=== PATIENT | male | born 1940 | race Caucasian/White ===

== ENCOUNTER 2016-12-29 13:10 | Inpatient (IN) | payer OTHER, MEDICARE ==
[2016-12-29] VITALS (8 sets, daily range): BP systolic 106–160; BP diastolic 66–105; PULSE 76–109; RESP 12–20; TEMP 97.5–98; O2SAT 90–93
[~2016-12-29] VITALS: Ht 172.7 cm; Wt 63.1 kg
[~2016-12-29 13:10] MED LIST: ATEN50TA PO; ENAL20TA PO; FERR1TAB36 PO; FLUD.1 PO; FURO1TAB60 PO; HYDR-3533 PO; JANT3TAB PO; LOVA40TA PO; METF1000 PO; OXYGENTANK NAS.CANULA; PENT400T PO; RANI150T PO; VERA360C PO; VITATAB43 PO
[2016-12-29] MEDS ORDERED: SODIUM CHLORIDE 0.9% FLUSH 5 ML FLUSH IVF PRN (13:30)
[2016-12-29] MEDS ORDERED: METF500T PO (13:37)
--- NOTE | 2016-12-29 13:42 | PD ---
HPI Chief Complaint: Abdominal Pain Time Seen by Provider: 13:23 Travel History International Travel<30 days: No Contact w/Intl Traveler<30days: No Traveled to known affect area: No History of Present Illness HPI 76-year-old male with history of HTN, HLD, DM, CAD with previous CABG, expressive aphasia here with complaint of abdominal pain. Patient is here with significant other who assists with history due to his aphasia. For the last week patient has had periumbilical abdominal pain that radiates into the epigastrium. Describes this as cramping. Mild nausea, no vomiting. BM, urinary habits have been unremarkable. He denies any chest pain, shortness of breath or palpitations. His however notes that he was hospitalized for a CHF exacerbation in October and overall has been doing well, but over the last 3 days he's had slight increasing dyspnea with exertion and generalized weakness. No increasing pedal edema. PFSH Past Medical History Hx Anticoagulant Therapy: Yes (coumadin) Arthritis: Yes (hands ) Cancer: Yes (PROSTATE/ skin cancer ) Cardiovascular Problems: Yes (CHF) Coronary Artery Disease: Yes Diabetes: Yes (metformin) Diminished Hearing: Yes (hearing aides; none in place) Endocrine: Yes Genitourinary: No Hypertension: Yes Musculoskeletal: Yes Neurologic: Yes (expressive aphasia) Psychiatric: No Reproductive: No Thyroid Disease: No Tetanus Vaccination: > 5 Years Influenza Vaccination: Yes Past Surgical History Abdominal Surgery: Yes (gallbladder surgery ) Cardiac Surgery: Yes (open heart surgery ) Cholecystectomy: Yes Coronary Artery Bypass Graft: Yes Genitourinary Surgery: Yes (prostate surgery ) Social History Alcohol Use: No Tobacco Use: No (quit 25 years ago) Substance Use: No Allergies-Medications (Allergen,Severity, Reaction): Coded Allergies: No Known Allergies (Unverified , 12/29/16) Reported Meds & Prescriptions Reported Meds & Active Scripts Active Lasix (Furosemide) 40 Mg Tab 40 Mg PO DAILY Reported Metformin (Metformin HCl) 500 Mg Tab 500 Mg PO DAILY With a meal Vitamin [id number] Acid (Cobalamine Combinations) 500-400 Mcg Tab 1 Tab PO DAILY Fludrocortisone (Fludrocortisone Acetate) 0.1 Mg Tab 0.1 Mg PO EVERY OTHER DAY Iron (Ferrous Sulfate) 325 Mg Tab 325 Mg PO DAILY Take Lortab (Hydrocodone-Acetaminophen) 5-325 Mg Tab 1 Tab PO Q6H PRN Enalapril (Enalapril Maleate) 20 Mg Tab 20 Mg PO BID Metformin (Metformin HCl) 1,000 Mg Tab 1,000 Mg PO BIDPC With meals Jantoven (Warfarin) 3 Mg Tab 3 Mg PO DAILY Verapamil SR (Verapamil HCl) 360 Mg Cap 360 Mg PO DAILY Ranitidine (Ranitidine HCl) 150 Mg Tab 150 Mg PO DAILY Atenolol 50 Mg Tab 50 Mg PO DAILY Pentoxifylline ER (Pentoxifylline) 400 Mg Tab 400 Mg PO TID Lovastatin 40 Mg Tab 40 Mg PO DAILY Review of Systems ROS Limitations: Speech Impaired Except as stated in HPI: all other systems reviewed are Neg Physical Exam Narrative GENERAL: Elderly male in no acute distress SKIN: Warm and dry. HEAD: Normocephalic. EYES: No scleral icterus. No injection or drainage. ENT: Mucous membranes pink and moist. NECK: Supple CARDIOVASCULAR: Regular rate and rhythm. No murmur appreciated. RESPIRATORY: No accessory muscle use. Clear to auscultation. Breath sounds equal bilaterally, but decreased throughout. GASTROINTESTINAL: Abdomen soft, mild. Periumbilical Abdominal tenderness to palpation without rebound or guarding. Old healed surgical scars. MUSCULOSKELETAL: 1+ BLE edema NEUROLOGICAL: Awake and alert. Normal speech. PSYCHIATRIC: Appropriate mood and affect; insight and judgment normal. Data Data Last Documented VS Vital Signs Date Time Temp Pulse Resp B/P Pulse Ox O2 Delivery O2 Flow Rate FiO2 12/29/16 14:28 77 16 106/66 90 Room Air 12/29/16 13:38 97.5 Orders Complete Blood Count With Diff (12/29/16 13:29) Comprehensive Metabolic Panel (12/29/16 13:29) Lipase (12/29/16 13:29) Ct Abd/Pel W Iv Contrast(Rout) (12/29/16 13:29) Iv Access Insert/Monitor (12/29/16 13:29) Ecg Monitoring (12/29/16 13:29) Oximetry (12/29/16 13:29) Sodium Chloride 0.9% Flush (Ns Flush) (12/29/16 13:30) Electrocardiogram (12/29/16 13:29) Troponin I (12/29/16 13:29) Oral Contrast - Adult (12/29/16 13:32) Chest, Single Ap (2/18/17 ) Diatrizoate Liq (Md Alma Carrillo) (12/29/16 13:57) Labs Laboratory Tests Test 12/29/16 12/29/16 13:45 14:20 White Blood Count 8.9 TH/MM3 Red Blood Count 5.40 MIL/MM3 Hemoglobin 12.7 GM/DL Hematocrit 40.3 % Mean Corpuscular Volume 74.6 FL Mean Corpuscular Hemoglobin 23.5 PG Mean Corpuscular Hemoglobin 31.5 % Concent Red Cell Distribution Width 16.5 % Platelet Count 291 TH/MM3 Mean Platelet Volume 7.3 FL Neutrophils (%) (Auto) 84.1 % Lymphocytes (%) (Auto) 7.9 % Monocytes (%) (Auto) 5.8 % Eosinophils (%) (Auto) 0.1 % Basophils (%) (Auto) 2.1 % Neutrophils # (Auto) 7.5 TH/MM3 Lymphocytes # (Auto) 0.7 TH/MM3 Monocytes # (Auto) 0.5 TH/MM3 Eosinophils # (Auto) 0.0 TH/MM3 Basophils # (Auto) 0.2 TH/MM3 CBC Comment AUTO DIFF Differential Total Cells 100 Counted Neutrophils % (Manual) 85 % Band Neutrophils % 2 % Lymphocytes % 5 % Monocytes % 8 % Neutrophils # (Manual) 7.7 TH/MM3 Differential Comment FINAL DIFF MANUAL Sodium Level 124 MEQ/L Potassium Level 5.5 MEQ/L Chloride Level 90 MEQ/L Carbon Dioxide Level 19.2 MEQ/L Anion Gap 15 MEQ/L Blood Urea Nitrogen 34 MG/DL Creatinine 1.70 MG/DL Estimat Glomerular Filtration 40 ML/MIN Rate Random Glucose 151 MG/DL Calcium Level 8.4 MG/DL Total Bilirubin 0.4 MG/DL Aspartate Amino Transf 26 U/L (AST/SGOT) Alanine Aminotransferase 21 U/L (ALT/SGPT) Alkaline Phosphatase 72 U/L Troponin I 0.11 NG/ML Total Protein 6.9 GM/DL Albumin 3.3 GM/DL Lipase 212 U/L [facility] Medical Decision Making Medical Screen Exam Complete: Yes Emergency Medical Condition: Yes Medical Record Reviewed: Yes Differential Diagnosis 76-year-old male with history of HTN, HLD, DM, CAD with previous CABG, expressive aphasia here with complaint of abdominal pain. Differential includes gastritis, pancreatitis, hepatobiliary pathology, cardiac equivalent, bowel obstruction, and less likely peritoneal pathology given her overall benign abdominal examination. Narrative Course Patient placed on monitor, IV established and blood obtained. Twelve-lead EKG shows atrial fibrillation with slow ventricular response, rate 54. Patient has Q waves in inferiorly in 3, aVF. Similar to patient's previous EKG. CBC, CMP, lipase, troponin obtained and notable for sodium 124. Patient has a history of hyponatremia, this is similar to his baseline. Potassium slightly elevated at 5.5 though hemolyzed. BUN 34, creatinine 1.70. Troponin slightly elevated 0.11. Patient has history of strep anemia, again is chest pain-free at this time. Given 40 mg Lasix IV.. Portable chest x-ray obtained that showed left greater than right basilar consolidation and small effusions. These are unchanged my read from his October chest x-ray and I think are more likely due to CHF and less likely infection. CT abdomen and pelvis pending at the time this dictation. Patient signed out to oncoming provider waiting results of same for ultimate admission given his elevated troponin. Diagnosis Primary Impression: Abdominal pain Qualified Code: R10.9 - Abdominal pain, unspecified location Additional Impressions: Elevated troponin CHF exacerbation Qualified Code: I50.9 - Acute on chronic congestive heart failure, unspecified congestive heart failure type Dyspnea on exertion Admitting Information Admitting Physician Requests: Admit Rosario Thurston MD Dec 29, 2016 13:42
[2016-12-29] MEDS ORDERED: DIATRIZOATE MEGLUM/DIATRIZOATE SOD 9 ML CUP ONE (13:57)
[2016-12-29 14:08] LABS: AUTOMATED NEUTROPHIL # 7.5 TH/MM3 (1.8-7.7); BASOPHIL # 0.2 TH/MM3 (0-0.2); BASOPHIL % 2.1 % (0.0-2.0); EOSINOPHIL % 0.1 % (0.0-4.0); HEMATOCRIT 40.3 % (39.0-51.0); LYMPH % 7.9 % (9.0-44.0); LYMPHOCYTE # 0.7 TH/MM3 (1.0-4.8); MEAN CELL VOLUME 74.6 FL (80.0-100.0); MEAN CORPUSCULAR HEMOGLOBIN 23.5 PG (27.0-34.0); MEAN CORPUSCULAR HGB CONC 31.5 % (32.0-36.0); MONO % 5.8 % (0.0-8.0); NEUT % 84.1 % (16.0-70.0); PLATELET COUNT 291 TH/MM3 (150-450); RED CELL DISTRIBUTION WIDTH 16.5 % (11.6-17.2); WHITE BLOOD COUNT 8.9 TH/MM3 (4.0-11.0)
[2016-12-29 14:09] LABS: HEMO FLAGS AUTO DIFF
--- NOTE | 2016-12-29 14:09 | RADHPO ---
EXAM DATE/TIME: 12/29/2016 14:00 [facility] COMPARISON: CHEST SINGLE AP, October 19, 2016, 15:03. INDICATIONS : Short of breath. MEDICAL HISTORY : Congestive heart failure. Myocardial infarction. Diabetes mellitus type II. SURGICAL HISTORY : CABG. ENCOUNTER: Initial ACUITY: 2 days PAIN SCORE: 0/10 LOCATION: Bilateral chest FINDINGS: There is left greater than right basilar consolidation and small effusions. No pneumothorax seen. Hea rt size stable, upper limits of normal. Patient has had previous median sternotomy and coronary arter y bypass graft operation. CONCLUSION: Left greater than right basilar consolidation and small effusions. Gregor Smith MD on December 29, 2016 at 14:07 Board Certified Radiologist. This report was verified electronically.
[2016-12-29 14:39] LABS: BANDS 2 % (0-6); NEUTROPHIL # MANUAL DIFF 7.7 TH/MM3 (1.8-7.7); POLYS (SEG NEUTROPHILS) 85 % (16-70); SCAN/DIFF FINAL DIFF MANUAL; WBC DIFF SAMPLE 100
[2016-12-29 14:44] LABS: ANION GAP 15 MEQ/L (5-15); BICARBONATE 19.2 MEQ/L (21.0-32.0); BLOOD UREA NITROGEN 34 MG/DL (7-18); CHLORIDE 90 MEQ/L (98-107); POTASSIUM 5.5 MEQ/L (3.5-5.1)
[2016-12-29 14:45] LABS: SODIUM (NA) 124 MEQ/L (136-145)
[2016-12-29 15:16] LABS: ALKALINE PHOSPHATASE 72 U/L (45-117); ALT (GPT) 21 U/L (12-78); AST (GOT) 26 U/L (15-37); GLOMERULAR FILTRATION RATE 40 ML/MIN (>89); TOTAL BILIRUBIN ADULT 0.4 MG/DL (0.2-1.0)
[2016-12-29] MEDS ORDERED: FUROSEMIDE 40 MG/4 ML VIAL IV PUSH ONE (15:45)
[2016-12-29] MEDS: METFORMIN HOLD POST IV CONTRAST XX SCH (15:45)
--- NOTE | 2016-12-29 16:14 | PD ---
Physical Exam Date Seen by Provider: Dec 29, 2016 Time Seen by Provider: 16:11 Narrative The patient is a 76-year-old male was initially evaluated by the previous physician, Dr. Thurston. Please refer to initial history, physical, diagnostic evaluation, treatment modality plan. The patient has had increasing shortness of breath is worse with exertion as well as nondescript epigastric periumbilical abdominal pain for the last [address] Thurston, the patient appears to have congestive heart failure and will need admission. Patient was signed out at [address] of the abdomen and pelvis pending, with [facility] previous physician pending. Data Data Last Documented VS Vital Signs Date Time Temp Pulse Resp B/P Pulse Ox O2 Delivery O2 Flow Rate FiO2 12/29/16 16:20 76 16 129/86 90 Room Air 12/29/16 13:38 97.5 Orders Complete Blood Count With Diff (12/29/16 13:29) Comprehensive Metabolic Panel (12/29/16 13:29) Lipase (12/29/16 13:29) Ct Abd/Pel W Iv Contrast(Rout) (12/29/16 13:29) Iv Access Insert/Monitor (12/29/16 13:29) Ecg Monitoring (12/29/16 13:29) Oximetry (12/29/16 13:29) Sodium Chloride 0.9% Flush (Ns Flush) (12/29/16 13:30) Electrocardiogram (12/29/16 13:29) Troponin I (12/29/16 13:29) Oral Contrast - Adult (12/29/16 13:32) Chest, Single Ap (12/29/16 ) Diatrizoate Liq ( Gastroview Liq) (12/29/16 13:57) Furosemide Inj (Lasix Inj) (12/29/16 15:45) Aspirin Chew (Aspirin Chew) (12/29/16 16:15) Act Partial Throm Time (Ptt) (12/29/16 16:14) Prothrombin Time / Inr (Pt) (12/29/16 16:14) Iodixanol 320 Inj (Rad Ct) (Visipaque 32 (12/29/16 16:17) Labs Laboratory Tests Test 12/29/16 12/29/16 13:45 14:20 White Blood Count 8.9 TH/MM3 Red Blood Count 5.40 MIL/MM3 Hemoglobin 12.7 GM/DL Hematocrit 40.3 % Mean Corpuscular Volume 74.6 FL Mean Corpuscular Hemoglobin 23.5 PG Mean Corpuscular Hemoglobin 31.5 % Concent Red Cell Distribution Width 16.5 % Platelet Count 291 TH/MM3 Mean Platelet Volume 7.3 FL Neutrophils (%) (Auto) 84.1 % Lymphocytes (%) (Auto) 7.9 % Monocytes (%) (Auto) 5.8 % Eosinophils (%) (Auto) 0.1 % Basophils (%) (Auto) 2.1 % Neutrophils # (Auto) 7.5 TH/MM3 Lymphocytes # (Auto) 0.7 TH/MM3 Monocytes # (Auto) 0.5 TH/MM3 Eosinophils # (Auto) 0.0 TH/MM3 Basophils # (Auto) 0.2 TH/MM3 CBC Comment AUTO DIFF Differential Total Cells 100 Counted Neutrophils % (Manual) 85 % Band Neutrophils % 2 % Lymphocytes % 5 % Monocytes % 8 % Neutrophils # (Manual) 7.7 TH/MM3 Differential Comment FINAL DIFF MANUAL Prothrombin Time 46.2 SEC Prothromb Time International 3.9 RATIO Ratio Activated Partial 35.9 SEC Thromboplast Time Sodium Level 124 MEQ/L Potassium Level 5.5 MEQ/L Chloride Level 90 MEQ/L Carbon Dioxide Level 19.2 MEQ/L Anion Gap 15 MEQ/L Blood Urea Nitrogen 34 MG/DL Creatinine 1.70 MG/DL Estimat Glomerular Filtration 40 ML/MIN Rate Random Glucose 151 MG/DL Calcium Level 8.4 MG/DL Total Bilirubin 0.4 MG/DL Aspartate Amino Transf 26 U/L (AST/SGOT) Alanine Aminotransferase 21 U/L (ALT/SGPT) Alkaline Phosphatase 72 U/L Troponin I 0.11 NG/ML Total Protein 6.9 GM/DL Albumin 3.3 GM/DL Lipase 212 U/L [facility] Medical Record Reviewed: Yes Supervised Visit with RASHEED: No Interpretation(s) Laboratory Tests Test 12/29/16 12/29/16 13:45 14:20 White Blood Count 8.9 TH/MM3 Red Blood Count 5.40 MIL/MM3 Hemoglobin 12.7 GM/DL Hematocrit 40.3 % Mean Corpuscular Volume 74.6 FL Mean Corpuscular Hemoglobin 23.5 PG Mean Corpuscular Hemoglobin 31.5 % Concent Red Cell Distribution Width 16.5 % Platelet Count 291 TH/MM3 Mean Platelet Volume 7.3 FL Neutrophils (%) (Auto) 84.1 % Lymphocytes (%) (Auto) 7.9 % Monocytes (%) (Auto) 5.8 % Eosinophils (%) (Auto) 0.1 % Basophils (%) (Auto) 2.1 % Neutrophils # (Auto) 7.5 TH/MM3 Lymphocytes # (Auto) 0.7 TH/MM3 Monocytes # (Auto) 0.5 TH/MM3 Eosinophils # (Auto) 0.0 TH/MM3 Basophils # (Auto) 0.2 TH/MM3 CBC Comment AUTO DIFF Differential Total Cells 100 Counted Neutrophils % (Manual) 85 % Band Neutrophils % 2 % Lymphocytes % 5 % Monocytes % 8 % Neutrophils # (Manual) 7.7 TH/MM3 Differential Comment FINAL DIFF MANUAL Sodium Level 124 MEQ/L Potassium Level 5.5 MEQ/L Chloride Level 90 MEQ/L Carbon Dioxide Level 19.2 MEQ/L Anion Gap 15 MEQ/L Blood Urea Nitrogen 34 MG/DL Creatinine 1.70 MG/DL Estimat Glomerular Filtration 40 ML/MIN Rate Random Glucose 151 MG/DL Calcium Level 8.4 MG/DL Total Bilirubin 0.4 MG/DL Aspartate Amino Transf 26 U/L (AST/SGOT) Alanine Aminotransferase 21 U/L (ALT/SGPT) Alkaline Phosphatase 72 U/L Troponin I 0.11 NG/ML Total Protein 6.9 GM/DL Albumin 3.3 GM/DL Lipase 212 U/L CT abdomen and pelvis reveals no umbilical hernia identified in patient with reported umbilical hernia. There is fluid within a right sided inguinal hernia. No bowel obstruction. Mild ileus. Diffuse anasarca. Bilateral partially loculated pleural effusions with basilar airspace disease, right greater than left. Differential Diagnosis Differential diagnosis includes congestive heart failure, pneumonia, pulmonary embolism, pleural effusion, cardiomyopathy, hypoxia, AAA, atypical appendicitis , pancreatitis, biliary colic, peptic ulcer disease. Narrative Course The patient was initially evaluated by the previous physician, please refer to the initial history, physical, diagnostic evaluation, treatment modality plan. The patient was signed out of [address] the abdomen and pelvis report pending as well as admission for hypoxia and congestive heart failure. The patient's sodium is low 124, EMR reveals patient sodium typically runs between 126 and 130. Patient is on Coumadin, therefore, PT/INR were sent to lab. Patient does have acute exacerbation of CHF with hypoxia with an O2 sat on room air of 90%. The patient was administered Lasix by the previous physician, I provided aspirin [address] abdomen and pelvis reveals anasarca. INR is therapeutic at 3.9. The previous physician recommended admission, therefore , [facility]. I reviewed the EMR, the patient had an echocardiogram performed on October 20, 2016 which revealed an ejection fraction of 45%. Physician Communication Physician Communication [facility] were paged for admission. I discussed the patient with Dr. Granado who agrees with admission. Diagnosis Primary Impression: Abdominal pain Qualified Code: R10.9 - Abdominal pain, unspecified location Additional Impressions: Dyspnea on exertion Elevated troponin CHF exacerbation Qualified Code: I50.9 - Acute on chronic congestive heart failure, unspecified congestive heart failure type Admitting Information Admitting Physician Requests: Admit Condition: Stable Hugh Ham MD Dec 29, 2016 16:14
[2016-12-29] MEDS ORDERED: ASPIRIN 81 MG CHEW TAB CHEW ONE (16:15)
[2016-12-29] MEDS ORDERED: IODIXANOL 320 MG/ML 10 ML VIAL (for Rad CT) IV ONE (16:17)
[2016-12-29 16:36] LABS: APTT (PATIENT) 35.9 SEC (24.3-30.1); INTERNATIONAL NORMALIZED RATIO 3.9 RATIO; PROTHROMBIN TIME - PATIENT 46.2 SEC (9.8-11.6)
--- NOTE | 2016-12-29 16:36 | RADHPO ---
EXAM DATE/TIME: 12/29/2016 15:39 [facility] COMPARISON: No previous studies available for comparison. INDICATIONS : Umbilical pain for one week. IV CONTRAST: 46 cc Visipaque (iodixanol) IV ORAL CONTRAST: Prescribed oral contrast ingested. RADIATION DOSE: 7.46 CTDIvol (mGy) MEDICAL HISTORY : Hypertension. diabetes, congestive heart failure, SURGICAL HISTORY : CABG Cholecystectomy. ENCOUNTER: Initial ACUITY: 1 week PAIN SCALE: LOCATION: umbilical abdomen TECHNIQUE: Volumetric scanning of the abdomen and pelvis was performed. Using automated exposure control and ad justment of the mA and/or kV according to patient size, radiation dose was kept as low as reasonably achievable to obtain optimal diagnostic quality images. FINDINGS: There is a moderate size right effusion and a smaller left effusion both of which appear to be least partially loculated. There is bilateral mostly basilar airspace disease, right greater than left. Sev ere coronary calcifications present, postoperative CABG. No acute findings in the liver, spleen or pancreas. Left kidney unremarkable. Multiple right renal cy sts. There is bilateral adrenal gland enlargement. There is no bowel obstruction. There is a mild ileus with air-fluid levels noted in small and large b owel. There is mild anasarca. There is fluid tracking into the right inguinal canal. No acute bony abnormalities. CONCLUSION: 1. No umbilical hernia identified in patient with reported umbilical pain. There is fluid within a ri ght-sided inguinal hernia. No bowel obstruction. Mild ileus. 2. Diffuse anasarca. Bilateral partially loculated pleural effusions with basilar airspace disease , right greater than left. Carson Honeycutt MD on December 29, 2016 at 16:27 Board Certified Radiologist. This report was verified electronically.
[2016-12-29] MEDS ORDERED: DEXTROSE 50% IN WATER 50 ML VIAL(D50) IV PUSH PRN (17:00)
[2016-12-29] MEDS ORDERED: GLUCAGON 1 MG/ML VIAL OTHER PRN (17:00)
[2016-12-29] MEDS ORDERED: FUROSEMIDE 40 MG/4 ML VIAL IVP SCH (18:00)
[2016-12-29] MEDS: PENTOXIFYLLINE 400 MG CONTROLLED RELEASE TAB PO SCH (18:20)
[2016-12-29] MEDS: INSULIN ASPART SUPPLEMENTAL SCALE SQ SCH (20:05)
[2016-12-29] MEDS: SODIUM CHLORIDE 0.9% FLUSH 5 ML FLUSH IVF SCH (20:06)
[2016-12-30] VITALS (30 sets, daily range): BP systolic 95–162; BP diastolic 54–108; PULSE 52–122; RESP 14–31; TEMP 97.4–98.7; O2SAT 87–98
--- NOTE | 2016-12-30 01:33 | RADHPO ---
EXAM DATE/TIME: 12/30/2016 01:02 [facility] COMPARISON: CHEST SINGLE AP, December 29, 2016, 14:00. INDICATIONS : Shortness of breath. MEDICAL HISTORY : Hypertension. Congestive heart failure. Myocardial infarction. Diabetes SURGICAL HISTORY : CABG. Cholecystectomy. ENCOUNTER: Subsequent ACUITY: 3 days PAIN SCORE: 0/10 LOCATION: Bilateral chest FINDINGS: The cardiac silhouette is normal in transverse diameter. Median sternotomy wires are present. The mi gs are hypoinflated. There are findings of congestive heart failure with interstitial and alveolar op acity bilaterally. Small bilateral pleural effusions are identified. CONCLUSION: 1. Cardiomegaly and findings of congestive heart failure. The findings have worsened when compared wi th the prior examination. Candelario Trivedi MD on December 30, 2016 at 1:31 Board Certified Radiologist. This report was verified electronically.
[2016-12-30 02:43] LABS: CREATINE KINASE 69 U/L (39-308)
[2016-12-30 02:44] LABS: BICARBONATE 21.1 MEQ/L (21.0-32.0); POTASSIUM 4.9 MEQ/L (3.5-5.1)
[2016-12-30] MEDS ORDERED: FUROSEMIDE 40 MG/4 ML VIAL IV PUSH ONE (05:30)
[2016-12-30] MEDS: INSULIN ASPART SUPPLEMENTAL SCALE SQ SCH ×4 (06:41→21:00)
[2016-12-30 07:09] LABS: INTERNATIONAL NORMALIZED RATIO 4.8 RATIO; PROTHROMBIN TIME - PATIENT 56.7 SEC (9.8-11.6)
[2016-12-30 07:28] LABS: BICARBONATE 23.5 MEQ/L (21.0-32.0); POTASSIUM 4.6 MEQ/L (3.5-5.1)
--- NOTE | 2016-12-30 08:23 | HHI.HP ---
[facility] Leonardo Chowdhury M.D. Admission Diagnosis congestive heart failure, hypoxia, elevated troponin, anasarca Diagnoses: (1) Acute respiratory failure with hypoxia Diagnosis: Principal (2) Acute on chronic systolic congestive heart failure Diagnosis: Principal (3) Pleural effusion Diagnosis: Principal (4) Elevated troponin Diagnosis: Principal (5) Acute renal failure Diagnosis: Principal (6) Hyponatremia Diagnosis: Principal (7) Hyperkalemia Diagnosis: Principal (8) Coagulopathy Diagnosis: Principal (9) Atrial fibrillation Diagnosis: Principal (10) Hypertension Diagnosis: Secondary (11) Hyperlipidemia Diagnosis: Secondary (12) History of CVA with residual deficit Diagnosis: Secondary Chief Complaint: Abdominal pain Travel History International Travel<30 Days: No Contact w/Intl Traveler <30 Da: No Traveled to Known Affected Are: No History of Present Illness 76-year-old male with known history of hypertension, hyperlipidemia, history CVA with dysphasia, chronic systolic congestive heart failure, anticoagulated on Coumadin who presented to hospital because of abdominal pain. Patient does have difficulty speaking secondary previous CVA. Information was taken from medical records, patient came to emergency department for abdominal discomfort. Records indicate that for one week he has been having periumbilical, epigastric abdominal pain. Is also indicated that over the last 3 days he has been having slight increase with dyspnea with exertion and generalized weakness. Laboratory studies were done emergency department which did not indicate any acute abnormality for his above abdominal pain. Laboratory studies did indicate hyponatremia which is chronic and the patient, Coumadin coagulopathy. CT of the abdomen does indicate fluid within the right sided inguinal hernia, diffuse anasarca, bilateral partially loculated pleural effusions with bibasilar airspace disease. Chest x-ray was performed which did show congestive heart failure and worse when compared to previous examination. Patient was given Lasix in the emergency department and is recommended by the ER physician that the patient be admitted for further evaluation and management. Overnight, the patient apparently had episodes of desaturation. Blood Donor Unit Assistant was notified. Follow-up laboratory studies were performed, additional Lasix was given, patient was started on BiPAP for respiratory support. Patient was seen today in he does not indicate any shortness of breath or dyspnea. Still experiencing abdominal discomfort. Patient has not had any significant urinary output with Lasix. Patient will be transferred to ICU for closer management. Per the , due to the patient's aphasia, he cannot express himself well. She noted that he seemed fatigued, and was urinating less frequently, and also did not want to get up and walk as normally. She thus brought him to the ER. Patient does indicate that he feels better today. Patient's feels his color has improved. Review of Systems ROS Limitations: Speech Impaired Respiratory: DENIES: Cough, Wheezing, Shortness of breath Cardiovascular: COMPLAINS OF: Dyspnea on Exertion, Lower Extremity Edema, DENIES: Chest pain, Palpitations Gastrointestinal: COMPLAINS OF: Abdominal pain Past Family Social History Past Medical History Hypertension Hyperlipidemia Coronary artery disease History myocardial infarction History of CVA with residual of expressive dysphasia History of prostate cancer status post cryotherapy Diabetes Past Surgical History Coronary bypass surgery Tonsillectomy Cholecystectomy Cryosurgery for prostate Thoracentesis Reported Medications Reported Meds & Active Scripts Active Lasix (Furosemide) 40 Mg Tab 40 Mg PO DAILY Reported Metformin (Metformin HCl) 500 Mg Tab 500 Mg PO DAILY With a meal Vitamin I03-Lptuq Acid (Cobalamine Combinations) 500-400 Mcg Tab 1 Tab PO DAILY Fludrocortisone (Fludrocortisone Acetate) 0.1 Mg Tab 0.1 Mg PO EVERY OTHER DAY Iron (Ferrous Sulfate) 325 Mg Tab 325 Mg PO DAILY Take Lortab (Hydrocodone-Acetaminophen) 5-325 Mg Tab 1 Tab PO Q6H PRN Enalapril (Enalapril Maleate) 20 Mg Tab 20 Mg PO BID Metformin (Metformin HCl) 1,000 Mg Tab 1,000 Mg PO BIDPC With meals Jantoven (Warfarin) 3 Mg Tab 3 Mg PO DAILY Verapamil SR (Verapamil HCl) 360 Mg Cap 360 Mg PO DAILY Ranitidine (Ranitidine HCl) 150 Mg Tab 150 Mg PO DAILY Atenolol 50 Mg Tab 50 Mg PO DAILY Pentoxifylline ER (Pentoxifylline) 400 Mg Tab 400 Mg PO TID Lovastatin 40 Mg Tab 40 Mg PO DAILY Allergies: Coded Allergies: No Known Allergies (Unverified , 12/29/16) Family History Reviewed is significant for mother and father having heart disease Social History Patient quit smoking 24 years ago, patient quit using alcohol 20 years ago, patient denies any illicit drug use Physical Exam Vital Signs Vital Signs Date Time Temp Pulse Resp B/P Pulse Ox O2 Delivery O2 Flow Rate FiO2 12/30/16 04:45 96 35 12/30/16 04:00 98.7 108 22 148/108 98 12/30/16 01:00 94 40 12/30/16 00:22 97.8 103 24 162/95 92 12/29/16 20:40 92 Nasal Cannula 3.00 12/29/16 20:07 98.0 77 12 160/105 93 12/29/16 17:19 109 16 126/89 92 Nasal Cannula 2 12/29/16 16:20 76 16 129/86 90 Room Air 12/29/16 14:28 77 16 106/66 90 Room Air 12/29/16 13:51 16 91 Room Air 12/29/16 13:38 97.5 12/29/16 13:17 96 20 131/74 91 Physical Exam GENERAL: Well-developed, well-nourished, in no acute distress. alert and orientated HEENT: Head is normocephalic without any lesions or masses noted. Facial features are symmetric. Eyes: Pupils equal round reactive to light. Extraocular muscles are intact. Conjunctivae were clear. Patient wearing BiPAP mask NECK: Supple without any masses. Trachea midline no deviation. No JVD, no bruits are appreciated CARDIAC: Regular rhythm, regular rate. S1/S2 are heard. No murmurs gallops or rubs. LUNGS: Fine crackles noted bilateral bases. No wheeze, rhonchi or rales. No use of accessory muscles on inspiration or expiration. ABDOMEN: Soft, palpable tenderness noted in the epigastric region. Nondistended. Bowel sounds heard in all 4 quadrants. No organomegaly or masses. Negative rebound, negative guarding EXTREMITIES: 1+ pitting edema noted bilateral lower extremities, pulses are equal bilaterally. No cyanosis or clubbing NEUROLOGY: Mood and affect appear appropriate. Cranial nerves II through XII grossly intact. Muscle strength 5/5 in upper and lower extremities bilaterally. Deep tendon reflexes are 2+ in upper and lower extremities bilaterally. Laboratory Laboratory Tests Test 12/29/16 12/29/16 12/29/16 12/30/16 13:45 14:20 20:10 02:05 White Blood Count 8.9 Red Blood Count 5.40 Hemoglobin 12.7 Hematocrit 40.3 Mean Corpuscular Volume 74.6 Mean Corpuscular Hemoglobin 23.5 Mean Corpuscular Hemoglobin 31.5 Concent Red Cell Distribution Width 16.5 Platelet Count 291 Mean Platelet Volume 7.3 Neutrophils (%) (Auto) 84.1 Lymphocytes (%) (Auto) 7.9 Monocytes (%) (Auto) 5.8 Eosinophils (%) (Auto) 0.1 Basophils (%) (Auto) 2.1 Neutrophils # (Auto) 7.5 Lymphocytes # (Auto) 0.7 Monocytes # (Auto) 0.5 Eosinophils # (Auto) 0.0 Basophils # (Auto) 0.2 CBC Comment AUTO DIFF Differential Total Cells 100 Counted Neutrophils % (Manual) 85 Band Neutrophils % 2 Lymphocytes % 5 Monocytes % 8 Neutrophils # (Manual) 7.7 Differential Comment FINAL DIFF MANUAL Prothrombin Time 46.2 Prothromb Time International 3.9 Ratio Activated Partial 35.9 Thromboplast Time Sodium Level 124 124 Potassium Level 5.5 4.9 Chloride Level 90 88 Carbon Dioxide Level 19.2 21.1 Anion Gap 15 15 Blood Urea Nitrogen 34 36 Creatinine 1.70 1.60 Estimat Glomerular Filtration 40 42 Rate Random Glucose 151 107 Calcium Level 8.4 8.6 Total Bilirubin 0.4 Aspartate Amino Transf 26 (AST/SGOT) Alanine Aminotransferase 21 (ALT/SGPT) Alkaline Phosphatase 72 Troponin I 0.11 0.11 0.14 Total Protein 6.9 Albumin 3.3 Lipase 212 Total Creatine Kinase 75 69 Test 12/30/16 06:15 Prothrombin Time 56.7 Prothromb Time International 4.8 Ratio Sodium Level 123 Potassium Level 4.6 Chloride Level 87 Carbon Dioxide Level 23.5 Anion Gap 13 Blood Urea Nitrogen 35 Creatinine 1.60 Estimat Glomerular Filtration 42 Rate Random Glucose 111 Calcium Level 8.9 Result Diagram: 12/29/16 1345 12/30/16 0615 Imaging Last Impressions Chest X-Ray 12/30/16 0000 Signed Impressions: Service Date/Time: Friday, December 30, 2016 01:02 - CONCLUSION: 1. Cardiomegaly and findings of congestive heart failure. The findings have worsened when compared with the prior examination. Candelario Trivedi MD Abdomen/Pelvis CT 12/29/16 1329 Signed Impressions: Service Date/Time: Thursday, December 29, 2016 15:39 - CONCLUSION: 1. No umbilical hernia identified in patient with reported umbilical pain. There is fluid within a right-sided inguinal hernia. No bowel obstruction. Mild ileus. 2. Diffuse anasarca. Bilateral partially loculated pleural effusions with basilar airspace disease, right greater than left. Carson Honeycutt MD Assessment and Plan Assessment and Plan Acute hypoxic respiratory failure: Likely secondary to congestive heart failure exacerbation. Patient will be transferred to the ICU. Continue BiPAP at this time. Continue O2 supplementation to maintain O2 sats greater than 92% . Obtain ABG. Chest x-ray shows worsening congestive pattern. Acute on chronic systolic congestive heart failure: Patient started on Lasix 40 mg IV every 12 hours. Patient was given extra dose of Lasix overnight. Patient with urinary output 775 mL of urine in 7 hours, approx 110ml/hr. Strict inputs and outputs are being monitored with Lepe. Repeat chest x-ray still showing worsening of congestive pattern. Patient continue to be monitored on telemetry. CT scan was showing anasarca and pleural effusions. Will change to Bumex 1 mg IV every 12 hours, start albumin 12.5 mg IV every 12 hours to facilitate extravascular fluid mobilization. Samsca 15 mg PO x 1 (lift fluid restriction). Placed YEIMY hose. Continued beta nirmal, LY inhibitor has been held due to acute renal failure and hyperkalemia. Recent echocardiogram 10/20/16 indicates ejection fraction 45%. Left ventricle mildly dilated, LVH, systolic function mildly reduced. Acute renal failure with hyperkalemia: Could be secondary to LY inhibitor, diuresis. We'll hold LY inhibitor, hyperkalemia has improved. Continue to follow renal function, avoid nephrotoxins Equivocal troponin elevation: Upon review of records it does appear patient has had previous troponin elevations. Patient is asymptomatic. EKGs do not indicate any acute abnormality. Denies any chest pain. Elevations could be secondary to congestive heart failure, renal failure. Continue monitor patient for any acute symptoms of acute coronary syndrome Hyponatremia: Patient does have chronic hyponatremia. On previous admission it could have been secondary to polydipsia. Need to use diuretic sparingly and monitoring sodium level closely. Samsca 15 mg PO x1 which will also aid with diuresis. D/w patient and to avoid fluid restriction over the next 24 hours. I will repeat a BMP this afternoon. Coumadin coagulopathy: We'll continue to hold Coumadin at this time, monitor PT /INR on a daily basis, monitor closely for any signs of acute bleeding Atrial fibrillation by EKG: Discussed with , she is unaware of any history of A. fib. The patient has not seen a [place] opener in years since his bypass surgery 20 years ago. Patient is on beta nirmal area rate is controlled. Patient already anticoagulated with Coumadin. Hypertension, hyperlipidemia, coronary artery disease: Home medications have been continued History of CVA with aphasia: Patient anticoagulated with Coumadin. Been held at this time due to coagulopathy. Resume Coumadin when INR below 3.0 DVT prevention: Patient anticoagulated on Coumadin. INR 4.8. Critical care time: 60 minutes excluding procedures Written by Grey Lombardo PA-C, acting as scribe for Dr. Granado on 12/30/16 at 15:10 The documentation accurately reflects the work and decisions performed face-to- face by Dr. Granado on 12/30/16 at 15:10. Physician Certification 2 Midnight Certification Type: Admission for Inpatient Services Order for Inpatient Services The services are ordered in accordance with Medicare regulations or non- Medicare payer requirements, as applicable. In the case of services not specified as inpatient-only, they are appropriately provided as inpatient services in accordance with the 2-midnight benchmark. Estimated LOS (days): 3 days is the estimated time the patient will need to remain in the hospital, assuming treatment plan goals are met and no additional complications. Post-Hospital Plan: Not yet determined Problem Qualifiers (1) Acute renal failure: Qualified Code: N17.9 - Acute renal failure, unspecified acute renal failure type (2) Atrial fibrillation: Qualified Code: I48.91 - Atrial fibrillation, unspecified type (3) Hypertension: Qualified Code: I15.9 - Secondary hypertension (4) Hyperlipidemia: Qualified Code: E78.5 - Hyperlipidemia, unspecified hyperlipidemia type Grey Lombardo Dec 30, 2016 08:23 Kassidy Granado MD Dec 30, 2016 15:22
[2016-12-30 08:52] LABS: BLOOD GAS BASE EXCESS -3.5 mmol/L (-2-2); BLOOD GAS CARBOXYHEMOGLOBIN 1.3 % (0-4); BLOOD GAS HCO3 21 mmol/L (22-26); BLOOD GAS METHEMOGLOBIN 0.7 % (0-2); BLOOD GAS O2 HGB SATURATION 92 % (90-100); BLOOD GAS OXYGEN CONTENT 15.6 Vol % (12.0-20.0); BLOOD GAS PCO2 35 mmHg (38-42); BLOOD GAS PO2 71 mmHg (61-120); CRITICAL VALUE NO; DRAW SITE RT RADIAL; LITER FLOW 3 L/M; NUMBER OF ARTERIAL PUNCTURES 1; OXYGEN DEVICE NASAL CANNULA; STAT NO; ULNAR PULSE PRESENT
[2016-12-30] MEDS ORDERED: ATENOLOL 50 MG TAB PO SCH (09:00)
[2016-12-30] MEDS: SODIUM CHLORIDE 0.9% FLUSH 5 ML FLUSH IVF SCH ×2 (09:23→20:20)
[2016-12-30] MEDS: FAMOTIDINE 20 MG TAB PO SCH (09:23)
[2016-12-30] MEDS: ALBUMIN HUMAN 25% 12.5 GM/50 ML BAGP IV SCH ×2 (09:23→16:42)
[2016-12-30] MEDS: PRAVASTATIN SOD 40 MG TAB PO SCH (09:23)
[2016-12-30] MEDS: BUMETANIDE INJ 1 MG/4 ML VIAL IV PUSH SCH ×2 (10:07→16:59)
[2016-12-30] MEDS: SODIUM CHLORIDE 0.9% FLUSH 5 ML FLUSH IVF PRN ×3 (10:08→16:59)
[2016-12-30] MEDS: PENTOXIFYLLINE 400 MG CONTROLLED RELEASE TAB PO SCH ×3 (11:01→17:04)
[2016-12-30] MEDS: VERAPAMIL HCL 180 MG SUSTAINED RELEASE TAB PO SCH (11:01)
[2016-12-30] MEDS ORDERED: TOLVAPTAN 30 MG TAB PO ONE (12:00)
[2016-12-30] MEDS: PILL SPLITTER OTHER PRN (12:07)
--- NOTE | 2016-12-30 15:29 | EKG ---
Date Performed: 12/29/2016 Time Performed: 13:32:14 PTAGE: 76 years EKG: Atrial fibrillation with slow ventricular response. Possible inferior wall infarct - age un determined Diffuse nonspecific ST-t wave change. Poor R wave progression. When compared to previous t racing, the ST-T changes have Improved. Abnormal ECG PREVIOUS TRACING : 10/20/2016 10.10 DOCTOR: Bruce Duong Interpretating Date/Time 12/30/2016 15:27:56
[2016-12-30] MEDS ORDERED: RESP: ALBUTEROL 2.5 MG/IPRATROPIUM 0.5 MG NEB (PRN) NEB (15:30)
--- NOTE | 2016-12-30 15:31 | EKG ---
Date Performed: 12/29/2016 Time Performed: 20:12:10 PTAGE: 76 years EKG: Atrial fibrillation. Possible inferior infarct - age undetermined Por R wave progression ac ross the precordium. Diffuse nonspecific ST-T change. When compared to previous tracing, heart rate h as increased, Otherwise no significant change. Abnormal ECG PREVIOUS TRACING : 12/29/2016 13.32 DOCTOR: Bruce Duong Interpretating Date/Time 12/30/2016 15:31:00
[2016-12-30] MEDS: RESP: ALBUTEROL 2.5 MG/IPRATROPIUM 0.5 MG NEB (SCH) NEB ×2 (15:34→19:35)
--- NOTE | 2016-12-30 15:34 | EKG ---
Date Performed: 12/30/2016 Time Performed: 01:56:46 PTAGE: 76 years EKG: Atrial fibrillation with rapid ventricular response Possible inferior wall infarct - age un determined Poorr wave progression across the precordium. Nonspecific ST-T change. When compared to pr evious tracikng, heart rate has increasd, Otherwise no significant change. Abnormal ECG PREVIOUS TRACING : 12/29/2016 20.12 DOCTOR: Bruce Duong Interpretating Date/Time 12/30/2016 15:33:07
[2016-12-30] MEDS: METFORMIN HOLD POST IV CONTRAST XX SCH (15:45)
[2016-12-30 16:38] LABS: BICARBONATE 23.5 MEQ/L (21.0-32.0); POTASSIUM 4.6 MEQ/L (3.5-5.1)
[2016-12-30] MEDS ORDERED: diphenhydrAMINE HCL 25 MG CAP PO ONE (23:15)
[2016-12-31] VITALS (32 sets, daily range): BP systolic 96–144; BP diastolic 52–97; PULSE 62–120; RESP 14–31; TEMP 97.6–98.1; O2SAT 84–100
[2016-12-31 05:30] LABS: POTASSIUM 4.2 MEQ/L (3.5-5.1)
[2016-12-31 05:33] LABS: BICARBONATE 25.3 MEQ/L (21.0-32.0)
[2016-12-31 06:08] LABS: INTERNATIONAL NORMALIZED RATIO 4.1 RATIO; PROTHROMBIN TIME - PATIENT 48.8 SEC (9.8-11.6)
[2016-12-31] MEDS: INSULIN ASPART SUPPLEMENTAL SCALE SQ SCH (07:00)
[2016-12-31] MEDS: RESP: ALBUTEROL 2.5 MG/IPRATROPIUM 0.5 MG NEB (SCH) NEB ×4 (07:44→19:25)
[2016-12-31] MEDS: SODIUM CHLORIDE 0.9% FLUSH 5 ML FLUSH IVF SCH ×2 (08:12→20:45)
[2016-12-31] MEDS: FLUDROCORTISONE ACETATE 0.1 MG TAB PO SCH (08:12)
[2016-12-31] MEDS: VERAPAMIL HCL 180 MG SUSTAINED RELEASE TAB PO SCH (08:12)
[2016-12-31] MEDS: PRAVASTATIN SOD 40 MG TAB PO SCH (08:12)
[2016-12-31] MEDS: ALBUMIN HUMAN 25% 12.5 GM/50 ML BAGP IV SCH ×2 (08:12→17:31)
[2016-12-31] MEDS: FAMOTIDINE 20 MG TAB PO SCH (08:12)
[2016-12-31] MEDS: PENTOXIFYLLINE 400 MG CONTROLLED RELEASE TAB PO SCH ×3 (08:12→17:31)
[2016-12-31] MEDS ORDERED: TOLVAPTAN 15 MG TAB PO ONE (08:15)
[2016-12-31] MEDS: SODIUM CHLORIDE 0.9% FLUSH 5 ML FLUSH IVF PRN ×3 (09:02→18:09)
[2016-12-31] MEDS: BUMETANIDE INJ 1 MG/4 ML VIAL IV PUSH SCH ×2 (09:02→18:09)
[2016-12-31] MEDS ORDERED: TOLVAPTAN 30 MG TAB PO ONE (09:15)
--- NOTE | 2016-12-31 10:32 | HHI.PR ---
Subjective Remarks Patient seen and examined today. Patient resting comfortably on 3 L nasal cannula with O2 saturations 9295 percent. UOP 900 ml. Patient states that he is doing better. Denies any shortness of breath or dyspnea. HR now elevated 100 -115 in room. Objective Vitals Vital Signs Date Time Temp Pulse Resp B/P Pulse Ox O2 Delivery O2 Flow Rate FiO2 12/31/16 07:45 93 Nasal Cannula 3.00 12/31/16 06:00 118 23 118/75 12/31/16 06:00 118 12/31/16 05:00 114 16 144/95 99 12/31/16 04:05 96 40 12/31/16 04:00 110 12/31/16 04:00 98.1 110 20 140/96 98 12/31/16 03:00 108 23 130/88 96 12/31/16 02:00 100 12/31/16 02:00 100 20 139/97 99 12/31/16 01:45 96 40 12/31/16 01:00 104 20 122/82 95 12/31/16 00:00 92 Bi-Pap 40 12/31/16 00:00 90 12/31/16 00:00 97.8 90 26 136/90 92 12/30/16 23:00 82 19 129/94 94 12/30/16 22:15 92 40 12/30/16 22:00 74 30 131/66 12/30/16 22:00 74 12/30/16 21:00 72 26 122/68 96 12/30/16 20:00 68 12/30/16 20:00 97.5 68 27 119/70 88 12/30/16 19:35 92 40 12/30/16 19:00 93 Bi-Pap 40 12/30/16 19:00 54 26 105/67 93 12/30/16 18:00 52 12/30/16 18:00 52 29 102/58 90 12/30/16 17:43 Bi-Pap 40 12/30/16 17:40 92 40 12/30/16 17:30 87 Venturi Mask 50 12/30/16 17:15 86 Venturi Mask 50 12/30/16 16:57 54 25 95/54 12/30/16 16:04 56 26 95/60 91 12/30/16 16:00 56 23 90 12/30/16 16:00 56 12/30/16 15:35 87 Nasal Cannula 6.00 12/30/16 15:30 97.4 60 29 89 12/30/16 15:00 86 Nasal Cannula 4.00 12/30/16 15:00 56 23 96/61 89 12/30/16 14:30 72 23 12/30/16 14:00 98 31 97/66 12/30/16 14:00 98 12/30/16 13:00 118 15 128/86 12/30/16 12:00 98.4 122 26 117/82 12/30/16 12:00 122 I/O 12/30/16 12/30/16 12/30/16 12/31/16 12/31/16 12/31/16 07:00 15:00 23:00 07:00 15:00 23:00 Intake Total 60 ml 530 ml 810 ml 240 ml Output Total 775 ml 1450 ml 500 ml 550 ml Balance -715 ml -920 ml 310 ml -310 ml Intake Oral 60 ml 480 ml 760 ml 240 ml Albumin 50 ml 50 ml Output Urine Total 775 ml 1450 ml 500 ml 550 ml Stool Total 0 ml 0 ml # Voids 0 Result Diagram: 12/29/16 1345 12/31/16 0450 Objective Remarks GENERAL: Well-developed, well-nourished, in no acute distress. alert HEENT: Head is normocephalic without any lesions or masses noted. Facial features are symmetric. Eyes: Pupils equal round reactive to light. Extraocular muscles are intact. Conjunctivae were clear. NECK: Supple without any masses. Trachea midline no deviation. No JVD, CARDIAC: Regular rhythm, regular rate. S1/S2 are heard. No murmurs gallops or rubs. LUNGS: Fine crackles noted bilateral bases. No wheeze, rhonchi or rales. No use of accessory muscles on inspiration or expiration. ABDOMEN: Soft, nontender. Nondistended. Bowel sounds heard in all 4 quadrants. No organomegaly or masses. Negative rebound, negative guarding EXTREMITIES: Lower extremity edema has improved. pulses are equal bilaterally. No cyanosis or clubbing NEUROLOGY: Mood and affect appear appropriate. Cranial nerves II through XII grossly intact. Moving all extremities, speech is clear Urinary Catheter: Yes Assessment to: Continue Lepe insert reason: Measure Accurate Output Vascular Central Line Catheter: No A/P Assessment and Plan Acute hypoxic respiratory failure: Likely secondary to congestive heart failure exacerbation. Improved. Continue O2 supplementation to maintain O2 sats greater than 92%. Chest x-ray 12/30 did show worsening congestive pattern. Repeat chest x-ray pending. Acute on chronic systolic congestive heart failure: Patient improved with urinary output after starting of Bumex/albumin and samsca x 1. Strict inputs and outputs are being monitored with Lepe. Continue to monitor on telemetry. CT scan was showing anasarca and pleural effusions. Placed YEIMY hose. Continued beta nirmal, LY inhibitor has been held due to acute renal failure and hyperkalemia. Recent echocardiogram 10/20/16 indicates ejection fraction 45 %. Left ventricle mildly dilated, LVH, systolic function mildly reduced. Continue bumex and albumin, repeat samsca again x 1. Acute renal failure with hyperkalemia: Hyperkalemia resolved. Could be secondary to LY inhibitor, diuresis. Continue to hold LY inhibitor, Continue to follow renal function, avoid nephrotoxins. Renal function stable. Equivocal troponin elevation: Upon review of records it does appear patient has had previous troponin elevations. Patient is asymptomatic. EKGs do not indicate any acute abnormality. Denies any chest pain. Elevations could be secondary to congestive heart failure, renal failure. Continue monitor patient for any acute symptoms of acute coronary syndrome Hyponatremia: Patient does have chronic hyponatremia. On previous admission it could have been secondary to polydipsia. Need to use diuretic sparingly and monitoring sodium level closely. Samsca 15 mg PO again today. Which will also aid with diuresis. Coumadin coagulopathy: We'll continue to hold Coumadin at this time, monitor PT /INR on a daily basis, monitor closely for any signs of acute bleeding. Pharmacist consulted for Coumadin management Atrial fibrillation by EKG: Discussed with on 11/29/16, she is unaware of any history of A. fib. 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 Atenolol held last night due to bradycardia, this morning heart rate is elevated, will start PO metoprolol. Patient already anticoagulated with Coumadin. Hypertension, hyperlipidemia, coronary artery disease: Home medications have been continued History of CVA with aphasia: Patient anticoagulated with Coumadin. Been held at this time due to coagulopathy. Resume Coumadin when INR below 3.0 DVT prevention: Patient anticoagulated on Coumadin. INR 4.1. Written by Grey Lombardo PA-C, acting as scribe for Dr. Granado on 12/31/16 at 1100 The documentation accurately reflects the work and decisions performed face-to- face by Dr. Granado on 12/31/16 at 1100. Grey Lombardo Dec 31, 2016 10:32 Kassidy Granado MD Dec 31, 2016 11:07 Grey Lombardo Dec 31, 2016 10:32
[2016-12-31] MEDS: PILL SPLITTER OTHER PRN (11:14)
[2016-12-31] MEDS: METOPROLOL TARTRATE 25 MG TAB PO SCH ×2 (11:14→20:45)
--- NOTE | 2016-12-31 12:44 | RADHPO ---
EXAM DATE/TIME: 12/31/2016 12:34 [facility] COMPARISON: CHEST SINGLE AP, December 30, 2016, 1:02. INDICATIONS : Short of breath MEDICAL HISTORY : Congestive heart failure. Hypertension Myocardial infarction. SURGICAL HISTORY : CABG. Cholecystectomy. ENCOUNTER: Initial ACUITY: 4 - 6 days PAIN SCORE: 0/10 LOCATION: Bilateral chest FINDINGS: No significant change compared to the prior study. Bilateral pleural effusions and bibasilar infiltra kevin persist. Heart remains enlarged. A scoliotic an osteopenic spine. Median sternotomy wires. CONCLUSION: No significant change with a radiographic appearance most suggestive of CHF. Tyler Servin Jr., MD on December 31, 2016 at 12:41 Board Certified Radiologist. This report was verified electronically.
[2016-12-31] MEDS: METFORMIN HOLD POST IV CONTRAST XX SCH (13:25)
[2016-12-31 13:32] LABS: POTASSIUM 4.1 MEQ/L (3.5-5.1)
[2016-12-31 13:35] LABS: BICARBONATE 25.3 MEQ/L (21.0-32.0)
[2017-01-01] VITALS (39 sets, daily range): BP systolic 94–140; BP diastolic 57–100; PULSE 100–138; RESP 13–33; TEMP 97.4–98.4; O2SAT 86–100
[2017-01-01] MEDS ORDERED: diphenhydrAMINE HCL 25 MG CAP PO ONE (00:45)
[2017-01-01 05:37] LABS: AUTOMATED NEUTROPHIL # 7.8 TH/MM3 (1.8-7.7); BASOPHIL % 0.4 % (0.0-2.0); EOSINOPHIL % 0.2 % (0.0-4.0); HEMATOCRIT 36.1 % (39.0-51.0); LYMPH % 5.9 % (9.0-44.0); LYMPHOCYTE # 0.6 TH/MM3 (1.0-4.8); MEAN CELL VOLUME 73.5 FL (80.0-100.0); MEAN CORPUSCULAR HEMOGLOBIN 23.4 PG (27.0-34.0); MEAN CORPUSCULAR HGB CONC 31.8 % (32.0-36.0); NEUT % 81.5 % (16.0-70.0); PLATELET COUNT 235 TH/MM3 (150-450); RED BLOOD COUNT 4.91 MIL/MM3 (4.50-5.90); RED CELL DISTRIBUTION WIDTH 15.1 % (11.6-17.2); WHITE BLOOD COUNT 9.5 TH/MM3 (4.0-11.0)
[2017-01-01 05:47] LABS: HEMO FLAGS AUTO DIFF
[2017-01-01 05:48] LABS: POTASSIUM 3.7 MEQ/L (3.5-5.1)
[2017-01-01 05:49] LABS: INTERNATIONAL NORMALIZED RATIO 3.3 RATIO; PROTHROMBIN TIME - PATIENT 38.2 SEC (9.8-11.6)
[2017-01-01 05:53] LABS: BICARBONATE 27.4 MEQ/L (21.0-32.0)
[2017-01-01] MEDS: RESP: ALBUTEROL 2.5 MG/IPRATROPIUM 0.5 MG NEB (SCH) NEB ×4 (07:18→19:53)
[2017-01-01 07:39] LABS: SCAN/DIFF AUTO DIFF CONFIRMED
[2017-01-01] MEDS: VERAPAMIL HCL 180 MG SUSTAINED RELEASE TAB PO SCH (09:00)
[2017-01-01] MEDS: PRAVASTATIN SOD 40 MG TAB PO SCH (09:27)
[2017-01-01] MEDS: ALBUMIN HUMAN 25% 12.5 GM/50 ML BAGP IV SCH ×2 (09:27→16:47)
[2017-01-01] MEDS: SODIUM CHLORIDE 0.9% FLUSH 5 ML FLUSH IVF SCH (09:27)
[2017-01-01] MEDS: PENTOXIFYLLINE 400 MG CONTROLLED RELEASE TAB PO SCH ×3 (09:28→16:47)
[2017-01-01] MEDS: FAMOTIDINE 20 MG TAB PO SCH (09:28)
[2017-01-01] MEDS ORDERED: LEVOFLOXACIN 750 MG TAB PO SCH (10:00)
[2017-01-01] MEDS: BUMETANIDE INJ 1 MG/4 ML VIAL IV PUSH SCH ×2 (10:13→17:11)
[2017-01-01] MEDS ORDERED: METOPROLOL TARTRATE 50 MG TAB PO ONE (10:30)
--- NOTE | 2017-01-01 11:30 | HHI.PR ---
Subjective Remarks Patient denies dyspnea this morning. Overnight he was briefly placed on 6 L nasal cannula for low oxygen saturations. This morning he is on 4 L nasal cannula. He diuresed 1900 mL over the past 24 hours with net negative of 761 and miles. His is at bedside. The patient does complain of pain of the heels bilaterally which he thinks is from the YEIMY hose. He is also tachycardic in the 110s to 130s. Objective Vitals Vital Signs Date Time Temp Pulse Resp B/P Pulse Ox O2 Delivery O2 Flow Rate FiO2 01/01/17 11:10 96 Nasal Cannula 3.00 01/01/17 11:00 120 15 103/82 100 01/01/17 10:00 126 22 109/66 93 01/01/17 10:00 126 01/01/17 09:16 124 24 100/57 91 01/01/17 09:00 130 24 97/76 91 01/01/17 08:05 97.8 122 27 140/99 90 01/01/17 08:03 120 19 131/100 92 01/01/17 08:00 98 Nasal Cannula 4.00 01/01/17 08:00 115 01/01/17 07:22 97 Nasal Cannula 4.00 01/01/17 07:02 110 13 105/69 98 01/01/17 06:39 99 Nasal Cannula 4.00 01/01/17 06:20 88 Nasal Cannula 6.00 01/01/17 06:02 114 15 130/71 95 01/01/17 06:00 110 01/01/17 06:00 94 Nasal Cannula 4.00 01/01/17 05:02 114 16 132/94 99 01/01/17 04:15 96 40 01/01/17 04:02 97.4 116 26 137/80 96 01/01/17 04:00 96 Bi-Pap 40 01/01/17 04:00 100 01/01/17 03:06 86 Bi-Pap 40 01/01/17 03:02 108 30 107/83 86 01/01/17 02:02 108 19 136/96 93 01/01/17 02:00 92 Nasal Cannula 4.00 01/01/17 02:00 114 01/01/17 01:02 102 27 128/75 96 01/01/17 00:55 96 40 01/01/17 00:02 98.0 108 28 116/70 90 01/01/17 00:00 104 01/01/17 00:00 90 Bi-Pap 40 12/31/16 23:02 98 17 115/58 95 12/31/16 22:00 99 12/31/16 22:00 92 14 115/68 100 12/31/16 21:21 108 23 116/77 92 12/31/16 20:00 90 22 107/74 95 12/31/16 20:00 88 12/31/16 20:00 93 Nasal Cannula 4.00 12/31/16 19:29 93 Bi-Pap 40 12/31/16 19:25 93 40 12/31/16 19:15 97.6 77 30 93 12/31/16 19:00 82 28 101/73 89 12/31/16 18:36 87 Bi-Pap 12/31/16 18:30 92 40 12/31/16 18:27 85 Nasal Cannula 6.00 12/31/16 18:00 74 12/31/16 18:00 74 20 105/56 91 12/31/16 17:00 78 24 102/55 12/31/16 16:00 76 12/31/16 16:00 98.1 76 24 105/66 92 12/31/16 15:45 92 Nasal Cannula 4.00 12/31/16 15:33 86 Nasal Cannula 4.00 12/31/16 15:00 72 19 105/75 91 12/31/16 14:00 62 12/31/16 14:00 62 20 105/62 91 12/31/16 13:00 68 26 96/60 84 12/31/16 12:00 70 12/31/16 12:00 97.9 70 16 100/52 89 I/O 12/31/16 12/31/16 12/31/16 01/01/17 01/01/17 01/01/17 07:00 15:00 23:00 07:00 15:00 23:00 Intake Total 240 ml 410 ml 610 ml 120 ml Output Total 550 ml 650 ml 501 ml 750 ml Balance -310 ml -240 ml 109 ml -630 ml Intake Oral 240 ml 360 ml 560 ml 120 ml Albumin 50 ml 50 ml Output Urine Total 550 ml 650 ml 500 ml 750 ml Stool Total 0 ml 0 ml 1 ml 0 ml Result Diagram: 01/01/1749901/01/17499 Objective Remarks GENERAL: Well-nourished, well-developed pleasant elderly somewhat frail and chronically ill appearing male patient. SKIN: Warm and dry. HEAD: Normocephalic. EYES: No scleral icterus. No injection or drainage. NECK: Supple, trachea midline. No JVD or lymphadenopathy. CARDIOVASCULAR: Irregular rate and rhythm without murmurs, gallops, or rubs. RESPIRATORY: Breath sounds diminished at the bases bilaterally. No wheezing. No Rales. No accessory muscle use. GASTROINTESTINAL: Abdomen soft, non-tender, nondistended. EXTREMITIES: No pedal edema. No ulcers on the heels. His feet are tender to palpation bilaterally. He has good capillary refill in the hallux bilaterally however I was unable to palpate dorsalis pedis pulses manually or via Doppler. NEUROLOGICAL: Awake, alert, and oriented x 3. He does have some expressive aphasia. A/P Problem List: (1) Acute respiratory failure with hypoxia ICD Code: J96.01 Status: Acute (2) Acute on chronic systolic congestive heart failure ICD Code: I50.23 Status: Acute (3) Pleural effusion ICD Code: J90 Status: Acute (4) Elevated troponin ICD Code: R79.89 Status: Acute (5) Acute renal failure ICD Code: N17.9 Status: Acute (6) Hyponatremia ICD Code: E87.1 Status: Acute (7) Hyperkalemia ICD Code: E87.5 Status: Acute (8) Coagulopathy ICD Code: D68.9 Status: Acute (9) Atrial fibrillation ICD Code: I48.91 Status: Acute (10) Hypertension ICD Code: I10 Status: Acute (11) Hyperlipidemia ICD Code: E78.5 Status: Acute (12) History of CVA with residual deficit ICD Code: I69.30 Status: Acute Assessment and Plan Acute hypoxic respiratory failure: Likely secondary to congestive heart failure exacerbation. He is somewhat resistant to diuresis. I will increase Bumex to 1 mg IV every 8 hours with albumen. He is also status post Samsca 2. Resume fluid restriction. Continue O2 supplementation to maintain O2 sats greater than 92%. Chest x-ray 12/31 consistent with congestive pattern. Danita Garcia. Acute on chronic systolic congestive heart failure: Diuresis as above. Strict inputs and outputs are being monitored with Lepe. Continue to monitor on telemetry. Abdominal CT scan on admission showing anasarca and pleural effusions. Continued beta nirmal, LY inhibitor has been held due to acute renal failure and hyperkalemia. Recent echocardiogram 10/20/16 indicates ejection fraction 45%. Left ventricle mildly dilated, LVH, systolic function mildly reduced. I will repeat echocardiogram. Acute renal failure with hyperkalemia: Hyperkalemia resolved. Could be secondary to LY inhibitor, diuresis. Continue to hold LY inhibitor, Continue to follow renal function, avoid nephrotoxins. Renal function stable. Equivocal troponin elevation: Upon review of records it does appear patient has had previous troponin elevations. Patient is asymptomatic. EKGs do not indicate any acute abnormality. Denies any chest pain. Elevations could be secondary to congestive heart failure, renal failure. Continue monitor patient for any acute symptoms of acute coronary syndrome Hyponatremia: Patient does have chronic hyponatremia. On previous admission it could have been secondary to polydipsia. Status post Samsca 15 mg PO 2 with improvement of sodium to 1:30 today. Coumadin coagulopathy: INR 3.3 today. We'll continue to hold Coumadin at this time, monitor PT/INR on a daily basis, monitor closely for any signs of acute bleeding. Pharmacist consulted for Coumadin management Atrial fibrillation by EKG now with rapid ventricular rate: Discussed with on 11/29/16, she is unaware of any history of A. fib. The patient has not seen a allergy physician in years since his bypass surgery 20 years ago. Increase metoprolol to 50 mg by mouth every 8 hours. Patient already anticoagulated with Coumadin. Check TSH. Consult cardiology. He does not follow with a allergy physician as outpatient. Hypertension, hyperlipidemia, coronary artery disease status post CABG in the past. : Continue Coumadin, verapamil, metoprolol, pravastatin. History of CVA with aphasia: Patient anticoagulated with Coumadin. Been held at this time due to coagulopathy. Resume Coumadin when INR below 3.0 -Probable peripheral vascular disease. Unable to detect dorsalis pedis pulses manually or with Doppler. Will get an ankle brachial index. He does have good cap refill in both feet. DVT prevention: Patient anticoagulated on Coumadin. Problem Qualifiers (1) Acute renal failure: Qualified Code: N17.9 - Acute renal failure, unspecified acute renal failure type (2) Atrial fibrillation: Qualified Code: I48.91 - Atrial fibrillation, unspecified type (3) Hypertension: Qualified Code: I15.9 - Secondary hypertension (4) Hyperlipidemia: Qualified Code: E78.5 - Hyperlipidemia, unspecified hyperlipidemia type Kassidy Granado MD Jan 01, 2017 11:30
[2017-01-01] MEDS: METOPROLOL TARTRATE 50 MG TAB PO SCH (16:47)
[2017-01-01] MEDS: SODIUM CHLORIDE 0.9% FLUSH 5 ML FLUSH IVF PRN ×2 (16:48→17:11)
[2017-01-01] MEDS ORDERED: METOPROLOL TARTRATE 5 MG/5 ML VIAL ONE (18:47)
[2017-01-01] MEDS ORDERED: METOPROLOL TARTRATE 5 MG/5 ML VIAL IV ONE (19:30)
--- NOTE | 2017-01-01 20:55 | MB ---
cc: BRONWYN HOLLIDAY MD DATE OF CONSULTATION 01/01/17 REASON FOR CONSULTATION Atrial fibrillation with rapid ventricular rate. HISTORY OF PRESENT ILLNESS Mr. Crespo is a 76-year-old man he does have a remote history of CVA with residual dysphasia as well prior ME with subsequent coronary artery bypass graft. The patient was admitted with acute congestive heart failure. Cardiology was subsequently consulted. The patient at this point denies any cardiac complaints. PAST MEDICAL HISTORY 1. Respiratory failure 2. Congestive heart failure. 3. CAD, 4. Renal insufficiency, 5. Hyponatremia, 6. Hyperkalemia, 7. Coagulopathy, 8. Hypertension, 9. Hyperlipidemia, 10. CVA 11. Prostate cancer. Of note, the denies any prior history of atrial fibrillation. PAST SURGICAL HISTORY 1. Coronary artery bypass graft. 2. Tonsillectomy, 3. Cholecystectomy, 4. Cryotherapy for his prostate 5. Thoracentesis OUTPATIENT MEDICATIONS 1. Lasix. 2. Metformin. 3. Vitamin B12 4. Fludrocortisone 5. iron 6. Lortab. 7. Enalapril, 8. Metformin 9. 10. Verapamil 11. Rimantadine 12. Atenolol 13. Pentoxifylline 14. Lovastatin FAMILY HISTORY Positive for CAD. SOCIAL HISTORY The patient is and is a former smoker. REVIEW OF SYSTEMS Unable/unreliable PHYSICAL EXAMINATION VITAL SIGNS: 130, 23, 123/70. GENERAL: He is a well appearing male who is in no apparent distress. NECK: Free from JVD. LUNGS: Bilaterally decreased but clear to auscultation. CARDIOVASCULAR: Normal S1 and S2, rhythm is irregularly irregular. ABDOMEN: Soft. EXTREMITIES: Free from edema. CARDIOLOGY STUDIES Echocardiogram from October 2016 shows an EF of 45%. IMPRESSION 1. Atrial fibrillation with rapid ventricular rate - the patient has been on atenolol and verapamil at home. He broke through despite both these medications. Thus, I believe that he probably will be difficult to rate control. We will need to increase his medication for this. His verapamil was apparently held today. At this point, I am going to continue his verapamil and metoprolol. We will add digoxin. The patient remains on his Coumadin for anticoagulation, although it is currently being held for an INR of 3.3. 2. Heart failure - the patient does have a known EF of 45%, thus, this is most consistent with a systolic heart failure. He is on beta-nirmal. I do agree with continuing conservative measures. His hyponatremia with a sodium of 123 is a fairly ominous predictor. 3. Elevated troponin. This is most consistent with his heart failure presentation and may be secondary to his atrial fibrillation with rapid ventricular response. Chase Diego/ /7:01 PM /8:37 PM
[2017-01-01] MEDS ORDERED: METOPROLOL TARTRATE 50 MG TAB PO SCH (21:00)
[2017-01-01] MEDS ORDERED: VERAPAMIL HCL 180 MG SUSTAINED RELEASE TAB PO ONE (22:00)
[2017-01-01] MEDS ORDERED: METOPROLOL TARTRATE 5 MG/5 ML VIAL IV PRN (22:00)
[2017-01-02] VITALS (41 sets, daily range): BP systolic 97–139; BP diastolic 54–97; PULSE 72–132; RESP 17–34; TEMP 97.5–97.9; O2SAT 87–99
[2017-01-02] MEDS: ALBUMIN HUMAN 25% 12.5 GM/50 ML BAGP IV SCH ×3 (00:08→17:34)
[2017-01-02] MEDS: SODIUM CHLORIDE 0.9% FLUSH 5 ML FLUSH IVF SCH ×3 (00:08→21:20)
[2017-01-02] MEDS: METOPROLOL TARTRATE 50 MG TAB PO SCH ×3 (00:08→17:33)
[2017-01-02] MEDS ORDERED: TAMSULOSIN HCL 0.4 MG CAP PO ONE (00:15)
[2017-01-02] MEDS ORDERED: OXYBUTYNIN CHLORIDE 5 MG TAB PO ONE (00:30)
[2017-01-02] MEDS: BUMETANIDE INJ 1 MG/4 ML VIAL IV PUSH SCH ×3 (01:19→17:33)
[2017-01-02 05:32] LABS: POTASSIUM 3.7 MEQ/L (3.5-5.1)
[2017-01-02 05:34] LABS: INTERNATIONAL NORMALIZED RATIO 2.8 RATIO; PROTHROMBIN TIME - PATIENT 32.1 SEC (9.8-11.6)
[2017-01-02 05:37] LABS: BICARBONATE 29.3 MEQ/L (21.0-32.0)
[2017-01-02] MEDS: FAMOTIDINE 20 MG TAB PO SCH (08:07)
[2017-01-02] MEDS: PENTOXIFYLLINE 400 MG CONTROLLED RELEASE TAB PO SCH ×3 (08:07→17:33)
[2017-01-02] MEDS: VERAPAMIL HCL 180 MG SUSTAINED RELEASE TAB PO SCH (08:07)
[2017-01-02] MEDS: PRAVASTATIN SOD 40 MG TAB PO SCH (08:07)
[2017-01-02] MEDS: FLUDROCORTISONE ACETATE 0.1 MG TAB PO SCH (08:07)
[2017-01-02] MEDS: RESP: ALBUTEROL 2.5 MG/IPRATROPIUM 0.5 MG NEB (SCH) NEB ×4 (08:19→19:52)
--- NOTE | 2017-01-02 09:41 | HHI.PR ---
Subjective Remarks Patient seen and evaluated today in follow-up for acute systolic/diastolic heart failure with atrial fibrillation and equivocal troponin. Patient appears to be diuresing overnight. INR 2.8 today. Some testicular skin changes noted overnight and patient does appear to have shingles. He does have a history of chickenpox which verified by the family. CODE STATUS discussed with patient and and daughter. They have elected full CODE STATUS and will continue with medication adjustment Objective Vitals Vital Signs Date Time Temp Pulse Resp B/P Pulse Ox O2 Delivery O2 Flow Rate FiO2 01/02/17 08:20 91 Venturi Mask 50 01/02/17 06:20 92 Venturi Mask 6.00 50 01/02/17 06:00 108 28 134/71 92 01/02/17 06:00 108 01/02/17 05:15 92 17 131/84 92 01/02/17 05:08 88 Bi-Pap 40 01/02/17 05:08 92 40 01/02/17 04:01 97.6 84 17 112/72 95 01/02/17 04:00 86 01/02/17 04:00 91 Nasal Cannula 4.00 01/02/17 03:01 86 17 113/72 94 01/02/17 02:01 90 18 112/66 95 01/02/17 02:00 92 01/02/17 01:01 110 18 121/69 99 01/02/17 01:00 114 01/02/17 00:01 97.6 132 29 128/76 92 01/02/17 00:00 128 01/02/17 00:00 93 Nasal Cannula 3.00 01/01/17 23:01 124 29 120/71 92 01/01/17 22:01 138 25 139/90 94 01/01/17 22:00 132 01/01/17 21:01 128 20 134/73 94 01/01/17 20:01 130 27 120/78 96 01/01/17 20:00 138 01/01/17 20:00 96 Nasal Cannula 3.00 01/01/17 19:53 96 Nasal Cannula 3.00 01/01/17 19:07 98.4 126 26 128/90 92 01/01/17 19:06 130 33 118/88 92 01/01/17 18:00 130 01/01/17 18:00 130 23 103/86 95 01/01/17 17:05 136 27 134/69 91 01/01/17 16:00 130 01/01/17 16:00 93 Nasal Cannula 3.00 01/01/17 16:00 98.0 130 16 105/90 97 01/01/17 15:00 124 19 99/65 97 01/01/17 14:00 122 19 124/67 98 01/01/17 14:00 122 01/01/17 13:00 126 24 100/66 94 01/01/17 12:00 97.4 120 27 94/72 93 01/01/17 12:00 120 01/01/17 12:00 98 Nasal Cannula 3.00 01/01/17 11:10 96 Nasal Cannula 3.00 01/01/17 11:00 120 15 103/82 100 01/01/17 10:00 126 22 109/66 93 01/01/17 10:00 126 I/O 01/01/17 01/01/17 01/01/17 01/02/17 01/02/17 01/02/17 07:00 15:00 23:00 07:00 15:00 23:00 Intake Total 120 ml 530 ml 670 ml Output Total 750 ml 650 ml 1550 ml Balance -630 ml -120 ml -880 ml Intake Oral 120 ml 480 ml 620 ml Albumin 50 ml 50 ml Output Urine Total 750 ml 650 ml 1550 ml Stool Total 0 ml 0 ml 0 ml Result Diagram: 01/01/17 0500 01/02/17 0447 Imaging Last Impressions Chest X-Ray 12/31/16 0000 Signed Impressions: Service Date/Time: Saturday, December 31, 2016 12:34 - CONCLUSION: No significant change with a radiographic appearance most suggestive of CHF. Tyler Servin Jr., MD Abdomen/Pelvis CT 12/29/16 1329 Signed Impressions: Service Date/Time: Thursday, December 29, 2016 15:39 - CONCLUSION: 1. No umbilical hernia identified in patient with reported umbilical pain. There is fluid within a right-sided inguinal hernia. No bowel obstruction. Mild ileus. 2. Diffuse anasarca. Bilateral partially loculated pleural effusions with basilar airspace disease, right greater than left. Carson Honeycutt MD Objective Remarks Skin with right lower back vesicles which appear to follow a dermatome GENERAL: This is a well-nourished, well-developed patient, in no apparent distress. Calm, expressive aphasia at baseline CARDIOVASCULAR: Atrial fibrillation with rapid rate without murmurs, gallops, or rubs. RESPIRATORY: Clear to auscultation. Breath sounds equal bilaterally. No wheezes , rales, or rhonchi. GASTROINTESTINAL: Abdomen soft, non-tender, nondistended. Normal active bowel sounds MUSCULOSKELETAL: Extremities without clubbing, cyanosis, or edema. NEURO: Alert & Oriented x4 to person, place, time, situation. Moves all ext x4 A/P Problem List: (1) Acute on chronic systolic congestive heart failure ICD Code: I50.23 Status: Acute Plan: Patient with systolic and diastolic heart failure and with elevated pulmonary artery pressures. Continue diuresis and continue conservative treatments. Cardiology consultation appreciated. Patient on Bumex, fluid restriction, O2 urine output to 2200 Patient with Lepe monitor Continue beta nirmal, LY inhibitor held due to acute kidney injury (2) Elevated troponin ICD Code: R79.89 Status: Acute Plan: Likely secondary to cardiac strain with atrial fibrillation and congestive heart failure, currently equivocal troponins. Continue surveillance and no intervention needed. Cardiology consult appreciated (3) Hyponatremia ICD Code: E87.1 Status: Acute Plan: Improved with fluid balance regulation. Likely secondary to congestive heart failure (4) History of CVA with residual deficit ICD Code: I69.30 Status: Acute Plan: With residual aphasia and Currently at baseline with communication, uses a walker at home but lives with his (5) Atrial fibrillation ICD Code: I48.91 Status: Acute Plan: Right uncontrolled. Cardiology consultation appreciated Continue metoprolol, verapamil. Patient with INR 2.8 today. Continue Coumadin (6) Shingles outbreak ICD Code: B02.9 Status: Acute Plan: Right lower back, add acyclovir and follow renal function Discharge Planning Likely home with home health care versus residential facility Problem Qualifiers (1) Atrial fibrillation: Qualified Code: I48.91 - Atrial fibrillation, unspecified type Yolanda Albert MD Jan 02, 2017 09:41
[2017-01-02] MEDS: ACYCLOVIR 800 MG TAB PO SCH ×4 (10:00→21:20)
[2017-01-02] MEDS: LEVOFLOXACIN 750 MG TAB PO SCH (11:30)
[2017-01-02 13:59] LABS: BLOOD GAS BASE EXCESS 2.9 mmol/L (-2-2); BLOOD GAS CARBOXYHEMOGLOBIN 1.8 % (0-4); BLOOD GAS HCO3 27 mmol/L (22-26); BLOOD GAS METHEMOGLOBIN 0.8 % (0-2); BLOOD GAS O2 HGB SATURATION 86 % (90-100); BLOOD GAS OXYGEN CONTENT 14.2 Vol % (12.0-20.0); BLOOD GAS PCO2 41 mmHg (38-42); BLOOD GAS PO2 55 mmHg (61-120); BLOOD GAS TOTAL HGB 11.7 G/DL (12.0-16.0); CRITICAL VALUE YES; OXYGEN DEVICE Venti Mask
[2017-01-02 14:00] LABS: DRAW SITE RT RADIAL; FIO2 50 %; NUMBER OF ARTERIAL PUNCTURES 1; STAT NO; ULNAR PULSE PRESENT
--- NOTE | 2017-01-02 15:52 | PD.CARD.PN ---
Subjective Subjective Remarks Pt without complaints Objective Medications Current Medications Medications (Trade) Dose Ordered Sig/[place] Route Start Time Stop Time Status Last Admin (NS Flush) 2 ml BID IVF 12/29/16 21:00 01/02/17 08:07 (NS Flush) 2 ml UNSCH PRN IVF 12/29/16 17:00 01/01/17 17:11 (Pravachol) 40 mg DAILY PO 12/30/16 09:00 01/02/17 08:07 (TRENtal SR) 400 mg TID PO 12/29/16 18:00 01/02/17 11:30 (Pepcid) 20 mg DAILY PO 12/30/16 09:00 01/02/17 08:07 Verapamil HCl 360 mg 360 mg DAILY PO 12/30/16 09:00 01/02/17 08:07 (Coumadin Consult Pharmacy) 0 ml @ 0 mls/hr UNSCH OTHER 12/30/16 12:00 (Pill Splitter) 1 ea UNSCH PRN OTHER 12/30/16 11:45 12/31/16 11:14 (Albumin 25% Inj) 12.5 gm Q8H IV 01/01/17 09:00 01/02/17 08:08 (Bumex Inj) 1 mg Q8H IV PUSH 01/01/17 10:00 01/02/17 11:30 (Levaquin) 750 mg DAILY@11 PO 01/02/17 11:00 01/02/17 11:30 (Lopressor) 50 mg Q8H PO 01/01/17 17:00 01/02/17 08:07 (Lopressor Inj) 5 mg Q2H PRN IV 01/01/17 22:00 (Coumadin) 3 mg DAILY@16 PO 01/02/17 16:00 Hold (Benadryl) 50 mg HS PRN PO 01/02/17 13:00 Vital Signs / I&O Vital Signs Date Time Temp Pulse Resp B/P Pulse Ox O2 Delivery O2 Flow Rate FiO2 01/02/17 14:00 76 29 120/68 89 01/02/17 14:00 76 01/02/17 13:05 72 23 114/71 88 01/02/17 12:11 74 23 104/60 87 01/02/17 12:00 74 01/02/17 12:00 91 Venturi Mask 6.00 50 01/02/17 11:50 88 01/02/17 11:50 76 01/02/17 11:00 94 21 97/61 91 01/02/17 10:05 110 22 104/61 92 01/02/17 10:00 110 01/02/17 09:05 114 20 126/80 94 01/02/17 08:20 91 Venturi Mask 50 01/02/17 08:05 126 22 102/75 91 01/02/17 08:00 126 01/02/17 08:00 91 Venturi Mask 6.00 50 01/02/17 07:05 116 20 134/88 91 01/02/17 06:20 92 Venturi Mask 6.00 50 01/02/17 06:00 108 28 134/71 92 01/02/17 06:00 108 01/02/17 05:15 92 17 131/84 92 01/02/17 05:08 88 Bi-Pap 40 01/02/17 05:08 92 40 01/02/17 04:01 97.6 84 17 112/72 95 01/02/17 04:00 86 01/02/17 04:00 91 Nasal Cannula 4.00 01/02/17 03:01 86 17 113/72 94 01/02/17 02:01 90 18 112/66 95 01/02/17 02:00 92 01/02/17 01:01 110 18 121/69 99 01/02/17 01:00 114 01/02/17 00:01 97.6 132 29 128/76 92 01/02/17 00:00 128 01/02/17 00:00 93 Nasal Cannula 3.00 01/01/17 23:01 124 29 120/71 92 01/01/17 22:01 138 25 139/90 94 01/01/17 22:00 132 01/01/17 21:01 128 20 134/73 94 01/01/17 20:01 130 27 120/78 96 01/01/17 20:00 138 01/01/17 20:00 96 Nasal Cannula 3.00 01/01/17 19:53 96 Nasal Cannula 3.00 01/01/17 19:07 98.4 126 26 128/90 92 01/01/17 19:06 130 33 118/88 92 01/01/17 18:00 130 01/01/17 18:00 130 23 103/86 95 01/01/17 17:05 136 27 134/69 91 01/01/17 16:00 130 01/01/17 16:00 93 Nasal Cannula 3.00 01/01/17 16:00 98.0 130 16 105/90 97 I/O 01/01/17 01/01/17 01/01/17 01/02/17 01/02/17 01/02/17 07:00 15:00 23:00 07:00 15:00 23:00 Intake Total 120 ml 530 ml 670 ml 260 ml Output Total 750 ml 650 ml 1550 ml 425 ml Balance -630 ml -120 ml -880 ml -165 ml Intake Oral 120 ml 480 ml 620 ml 210 ml Albumin 50 ml 50 ml 50 ml Output Urine Total 750 ml 650 ml 1550 ml 425 ml Stool Total 0 ml 0 ml 0 ml 0 ml Physical Exam GENERAL: Well developed, well nourished. No acute distress. HEENT: Jugular venous pressure is normal. CHEST: Lungs clear and decreased in bases to auscultation bilaterally. Unlabored respiratory effort. CARDIAC: irregular rate and rhythm without S3, S4, or murmur. ABDOMEN: Soft, nontender, no hepatosplenomegaly. Bowel sounds present. EXTREMITIES: no edema. Laboratory Laboratory Tests Test 01/02/17 01/02/17 04:47 13:45 Prothrombin Time 32.1 SEC Prothromb Time International 2.8 RATIO Ratio Sodium Level 132 MEQ/L Potassium Level 3.7 MEQ/L Chloride Level 92 MEQ/L Carbon Dioxide Level 29.3 MEQ/L Anion Gap 11 MEQ/L Blood Urea Nitrogen 32 MG/DL Creatinine 1.20 MG/DL Estimat Glomerular Filtration 59 ML/MIN Rate Random Glucose 92 MG/DL Calcium Level 8.4 MG/DL Blood Gas Puncture Site RT RADIAL Blood Gas Patient Temperature 37.0 Blood Gas HCO3 27 mmol/L Blood Gas Base Excess 2.9 mmol/L Blood Gas Oxygen Saturation 86 % Arterial Blood pH 7.43 Arterial Blood Partial 41 mmHg Pressure CO2 Arterial Blood Partial 55 mmHg Pressure O2 Arterial Blood Oxygen Content 14.2 Vol % Arterial Blood 1.8 % Carboxyhemoglobin Arterial Blood Methemoglobin 0.8 % Blood Gas Hemoglobin 11.7 G/DL Oxygen Delivery Device Venti Mask Blood Gas Inspired Oxygen 50 % Assessment and Plan Assessment and Plan AF - good gate control on present meds - restart coumadin, further management per primary team CHF- continues to improve Bianca Reynoso MD Jan 02, 2017 15:52
[2017-01-02] MEDS ORDERED: WARFARIN SOD 3 MG TAB PO SCH (16:00)
--- NOTE | 2017-01-02 16:12 | RADHPO ---
EXAM DATE/TIME: 01/02/2017 15:37 [facility] COMPARISON: CHEST SINGLE AP, December 31, 2016, 12:34. INDICATIONS: Short of breath. MEDICAL HISTORY: Congestive heart failure. Hypertension Myocardial infarction. SURGICAL HISTORY: CABG. Cholecystectomy. ENCOUNTER: Subsequent ACUITY: 4 - 6 days PAIN SCORE: Non-responsive. LOCATION: Bilateral chest FINDINGS: Sternal wires from previous median sternotomy are noted. Heart is enlarged. Mild interstitial edema is present. There are small bilateral pleural effusions more so on the right than the left, stable in the interval. There is no alveolar consolidation or pneumothorax. CONCLUSION: 1. Stable chest. 2. Small bilateral pleural effusions worse on the left than the right. Chris Alas MD FACR on January 02, 2017 at 15:57 Board Certified Radiologist. This report was verified electronically.
[2017-01-02] MEDS: WARFARIN SOD 2.5 MG TAB PO SCH (17:33)
--- NOTE | 2017-01-02 20:00 | EC ---
Study Study Date:01/02/2017 STUDY CONCLUSIONS SUMMARY - Left ventricle: The cavity size was dilated. Wall thickness was normal. Systolic function was moderately to severely reduced. The estimated ejection fraction was in the range of 25% to 30%. Wall motion was normal; there were no regional wall motion abnormalities. - Aortic valve: Calcified annulus. Trileaflet; moderately thickened leaflets. Transvalvular velocity was increased. 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 Trace regurgitation. Mean gradient: 13mm Hg (S). Peak gradient: 20mm Hg (S). Valve area: 0.63cm^2(VTI). Valve area: 0.84cm^2 (Vmax). - Mitral valve: Mild regurgitation. - Left atrium: The atrium was dilated. - Right ventricle: The cavity size was mildly dilated. Wall thickness was normal. - Tricuspid valve: Mild regurgitation. - Pulmonary arteries: Systolic pressure was moderately increased. PA peak pressure: 60mm Hg (S). If LV function is below 40, please consider prescribing an ACEI or ARB or document rationale for non-use. PROCEDURE DATA STUDY STATUS: Elective. Procedure: Transthoracic echocardiography. Image quality was good. Scanning was performed from the parasternal, apical, and subcostal acoustic windows. Study completion: The patient tolerated the procedure well. Transthoracic echocardiography. M-mode, complete 2D, complete spectral Doppler, and color Doppler. Height: Height: 68in. Weight: Weight: 145.7lb. Body mass index: BMI: 22.2kg/m^2. Body surface area: BSA: 1.79m^2. Patient status: Inpatient. CARDIAC ANATOMY LEFT VENTRICLE: The cavity size was dilated. Wall thickness was normal. Systolic function was moderately to severely reduced. The estimated ejection fraction was in the range of 25% to 30%. Wall motion was normal; there were no regional wall motion abnormalities. AORTIC VALVE: Calcified annulus. Trileaflet; moderately thickened leaflets. Doppler: Transvalvular velocity was increased. 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 Trace regurgitation. Valve area: 0.63cm^2(VTI). Indexed valve area: 0.35cm^2/m^2 (VTI). Valve area: 0.84cm^2 (Vmax). Indexed valve area: 0.47cm^2/m^2 (Vmax). Mean gradient: 13mm Hg (S). Peak gradient: 20mm Hg (S). AORTA: Aortic root: The aortic root was normal in size. MITRAL VALVE: Structurally normal valve. Doppler: Transvalvular velocity was within the normal range. There was no evidence for stenosis. Mild regurgitation. Peak gradient: 4mm Hg (D). LEFT ATRIUM: The atrium was dilated. RIGHT VENTRICLE: The cavity size was mildly dilated. Wall thickness was normal. PULMONIC VALVE: Doppler: Transvalvular velocity was within the normal range. There was no evidence for stenosis. No regurgitation. TRICUSPID VALVE: Structurally normal valve. Doppler: Transvalvular velocity was within the normal range. Mild regurgitation. PULMONARY ARTERY: The main pulmonary artery was normal-sized. Systolic pressure was moderately increased. RIGHT ATRIUM: The atrium was normal in size. PERICARDIUM: There was no pericardial effusion. SYSTEMIC VEINS: Inferior vena cava: The vessel was normal in size. Patient weight: 145.7lb _Ejection fraction:_ 65-75% _Fractional shortening:_ 32% up to 5Kg 5-11.5Kg 11.6-22.9Kg 23-45Kg 45-57Kg Aortic Root 7-13 <17 13-22 17-27 17-27 LA diam 6-13 <23 24-38 33-47 37-40 RVID 10-17 7-15 7-15 7-18 8-17 LVIDd 12-22 <32 24-38 33-47 37-40 LVPW 2-4 3-6 5-7 6-8 7-8 IVS 2-4 3-6 5-7 6-8 7-8 BASIC MEASUREMENTS ADULT NORMAL Left ventricle LV internal dimension, ED, chordal 46.9 mm 43-52 level, PLAX LV internal dimension, ES, chordal *44.1 mm 23-38 level, PLAX Fractional shortening, chordal level, *6 % >29 PLAX LV posterior wall thickness, ED 9.49 mm IVS/LVPW ratio, ED 0.98 <1.3 Ventricular septum Septal thickness, ED 9.33 mm Aortic valve Leaflet separation *10 mm 15-26 Aorta Root diameter, ED 36 mm Left atrium Anterior-posterior dimension 33 mm Anterior-posterior dimension index 1.84 cm/m^2 <2.2 BASIC MEASUREMENTS ADULT NORMAL Aortic valve Leaflet separation *10 mm 15-26 DOPPLER MEASUREMENTS ADULT NORMAL Main pulmonary artery Pressure, S *60 mm Hg =30 Aortic valve Peak velocity, S 226 cm/s Mean velocity, S 160 cm/s VTI, S 41.7 cm Mean gradient, S 13 mm Hg Peak gradient, S 20 mm Hg Valve area, VTI 0.63 cm^2 Valve area index, VTI 0.35 cm^2/m^2 Valve area, Vmax 0.84 cm^2 Valve area index, Vmax 0.47 cm^2/m^2 Mitral valve Peak E-wave velocity 94.3 cm/s Peak gradient, D 4 mm Hg Tricuspid valve Regurgitant peak velocity 356 cm/s Peak RV-RA gradient, S 51 mm Hg Maximal regurgitant velocity 356 cm/s Systemic veins Estimated CVP 10 mm Hg Right ventricle RV pressure, S *61 mm Hg <30 Pulmonic valve Peak velocity, S 45.1 cm/s LEGEND: Mean values are shown as u=mean value. Asterisk (*) anaya values outside specified normal range. Abigail Remy [id number]
[2017-01-03] VITALS (31 sets, daily range): BP systolic 86–139; BP diastolic 59–90; PULSE 94–126; RESP 13–26; TEMP 97.6–98.3; O2SAT 80–100
[2017-01-03] MEDS: METOPROLOL TARTRATE 50 MG TAB PO SCH ×3 (00:07→16:55)
[2017-01-03] MEDS: diphenhydrAMINE HCL 50 MG CAP PO PRN ×2 (00:07→21:41)
[2017-01-03] MEDS: ALBUMIN HUMAN 25% 12.5 GM/50 ML BAGP IV SCH ×2 (00:08→10:54)
[2017-01-03] MEDS ORDERED: BELLADONNA ALKALOIDS/OPIUM 60 MG SUPP RECTAL ONE (01:15)
[2017-01-03] MEDS: SODIUM CHLORIDE 0.9% FLUSH 5 ML FLUSH IVF PRN (02:07)
[2017-01-03] MEDS: BUMETANIDE INJ 1 MG/4 ML VIAL IV PUSH SCH ×3 (02:07→16:55)
[2017-01-03] MEDS: ACYCLOVIR 800 MG TAB PO SCH ×5 (05:18→21:41)
[2017-01-03 05:26] LABS: AUTOMATED NEUTROPHIL # 6.9 TH/MM3 (1.8-7.7); BASOPHIL % 0.3 % (0.0-2.0); EOSINOPHIL % 0.1 % (0.0-4.0); HEMATOCRIT 35.8 % (39.0-51.0); LYMPH % 3.5 % (9.0-44.0); LYMPHOCYTE # 0.3 TH/MM3 (1.0-4.8); MEAN CELL VOLUME 73.5 FL (80.0-100.0); MEAN CORPUSCULAR HEMOGLOBIN 23.4 PG (27.0-34.0); MEAN CORPUSCULAR HGB CONC 31.9 % (32.0-36.0); NEUT % 85.1 % (16.0-70.0); PLATELET COUNT 216 TH/MM3 (150-450); RED BLOOD COUNT 4.87 MIL/MM3 (4.50-5.90); RED CELL DISTRIBUTION WIDTH 15.8 % (11.6-17.2); WHITE BLOOD COUNT 8.1 TH/MM3 (4.0-11.0)
[2017-01-03 05:27] LABS: HEMO FLAGS AUTO DIFF
[2017-01-03 05:42] LABS: POTASSIUM 3.4 MEQ/L (3.5-5.1)
[2017-01-03 05:46] LABS: INTERNATIONAL NORMALIZED RATIO 3.1 RATIO; PROTHROMBIN TIME - PATIENT 36.1 SEC (9.8-11.6)
[2017-01-03 05:49] LABS: BICARBONATE 30.4 MEQ/L (21.0-32.0); PLATELET ESTIMATE SMEAR NORMAL (NORMAL); PLATELET MORPHOLOGY NORMAL (NORMAL); SCAN/DIFF AUTO DIFF CONFIRMED
[2017-01-03] MEDS: RESP: ALBUTEROL 2.5 MG/IPRATROPIUM 0.5 MG NEB (SCH) NEB ×2 (07:37→11:30)
[2017-01-03] MEDS: PRAVASTATIN SOD 40 MG TAB PO SCH (07:47)
[2017-01-03] MEDS: FAMOTIDINE 20 MG TAB PO SCH (07:47)
[2017-01-03] MEDS: VERAPAMIL HCL 180 MG SUSTAINED RELEASE TAB PO SCH (07:47)
[2017-01-03] MEDS: PENTOXIFYLLINE 400 MG CONTROLLED RELEASE TAB PO SCH ×3 (07:47→16:55)
[2017-01-03] MEDS: SODIUM CHLORIDE 0.9% FLUSH 5 ML FLUSH IVF SCH ×2 (07:48→21:41)
[2017-01-03] MEDS ORDERED: POTASSIUM CHLORIDE 10 MEQ CONTROLLED RELEASE TAB PO ONE (09:00)
[2017-01-03] MEDS: LEVOFLOXACIN 750 MG TAB PO SCH (10:54)
--- NOTE | 2017-01-03 13:04 | HHI.PR ---
Subjective Remarks Patient seen and evaluated today for increased work of breathing overnight secondary to congestive heart failure. Echocardiogram was repeated and compared with October which shows decreased systolic function from prior in the range of 25-30% from 40% previously. Patient also has increased pulmonary artery pressure of 60 mmHg. Overall patient requiring high levels of oxygen. Discussed with radiology regarding possible thoracentesis which cannot be done until his INR is subtherapeutic. Discussed with and curriculum coordinator at bedside. Objective Vitals Vital Signs Date Time Temp Pulse Resp B/P Pulse Ox O2 Delivery O2 Flow Rate FiO2 01/03/17 12:00 102 20 99/73 92 01/03/17 12:00 93 Partial Non-Rebreather 80 01/03/17 12:00 102 01/03/17 11:02 114 17 86/72 99 01/03/17 11:00 122 15 87/66 100 01/03/17 10:00 114 01/03/17 10:00 114 13 100/67 98 01/03/17 09:00 124 26 113/71 80 01/03/17 08:00 97 Bi-Pap 40 01/03/17 08:00 124 01/03/17 08:00 124 17 139/76 97 01/03/17 07:40 95 Partial Rebreather 13.00 01/03/17 07:00 126 16 115/74 95 01/03/17 06:13 120 01/03/17 06:11 95 Bi-Pap 40 01/03/17 06:00 120 23 119/59 95 01/03/17 05:00 104 18 138/84 93 01/03/17 04:00 93 Bi-Pap 40 01/03/17 04:00 105 01/03/17 04:00 98.0 112 17 135/90 93 01/03/17 03:03 111 16 122/68 94 01/03/17 02:38 94 40 01/03/17 02:11 108 26 113/82 96 01/03/17 02:05 92 Bi-Pap 40 01/03/17 02:00 111 01/03/17 01:11 110 21 136/88 94 01/03/17 00:15 88 Partial Non-Rebreather 14.00 01/03/17 00:11 111 23 114/79 95 01/03/17 00:00 92 Nasal Cannula 5.00 01/03/17 00:00 106 01/02/17 23:57 97.6 112 22 139/97 92 01/02/17 23:11 106 23 119/80 96 01/02/17 22:11 110 18 132/75 97 01/02/17 22:00 106 01/02/17 21:17 110 23 112/81 96 01/02/17 20:14 112 31 115/69 94 01/02/17 20:05 97.5 110 34 130/78 96 01/02/17 20:00 92 Partial Non-Rebreather 14.00 60 01/02/17 20:00 108 01/02/17 19:52 96 Partial Rebreather 01/02/17 19:05 104 25 120/71 94 01/02/17 18:05 102 20 113/78 97 01/02/17 18:00 102 01/02/17 17:05 98 22 107/54 94 01/02/17 16:05 94 29 106/64 88 01/02/17 16:00 94 01/02/17 16:00 91 Venturi Mask 6.00 50 01/02/17 15:05 97.9 82 28 126/62 87 01/02/17 14:00 76 29 120/68 89 01/02/17 14:00 76 01/02/17 13:05 72 23 114/71 88 I/O 01/02/17 01/02/17 01/02/17 01/03/17 01/03/17 01/03/17 07:00 15:00 23:00 07:00 15:00 23:00 Intake Total 670 ml 260 ml 470 ml 150 ml Output Total 1550 ml 425 ml 301 ml 600 ml Balance -880 ml -165 ml 169 ml -450 ml Intake Oral 620 ml 210 ml 420 ml 100 ml Albumin 50 ml 50 ml 50 ml 50 ml Output Urine Total 1550 ml 425 ml 300 ml 600 ml Stool Total 0 ml 0 ml 1 ml 0 ml Result Diagram: 01/03/17 0445 01/03/17 0445 Objective Remarks Skin with right lower back vesicles which appear to follow a dermatome GENERAL: This is a well-nourished, well-developed patient, in no apparent distress. Calm, expressive aphasia at baseline CARDIOVASCULAR: Atrial fibrillation with rapid rate without murmurs, gallops, or rubs. RESPIRATORY: Decreased breath sounds bilaterally GASTROINTESTINAL: Abdomen soft, non-tender, nondistended. Normal active bowel sounds MUSCULOSKELETAL: Extremities without clubbing, cyanosis, or edema. NEURO: Alert & Oriented x4 to person, place, time, situation. Moves all ext x4 A/P Problem List: (1) Acute on chronic systolic congestive heart failure ICD Code: I50.23 Status: Acute Plan: Patient with systolic and diastolic heart failure and with elevated pulmonary artery pressures. Continue diuresis and continue conservative treatments. Cardiology consultation appreciated. Patient on Bumex, fluid restriction, O2 urine output to 2200 d/c st Continue beta nirmal, LY inhibitor held due to acute kidney injury (2) Elevated troponin ICD Code: R79.89 Status: Acute Plan: Likely secondary to cardiac strain with atrial fibrillation and congestive heart failure, currently equivocal troponins. Continue surveillance and no intervention needed. Cardiology consult appreciated (3) Hyponatremia ICD Code: E87.1 Status: Acute Plan: Improved with fluid balance regulation. Likely secondary to congestive heart failure Replace hypokalemia (4) History of CVA with residual deficit ICD Code: I69.30 Status: Acute Plan: With residual aphasia and Currently at baseline with communication, uses a walker at home but lives with his (5) Atrial fibrillation ICD Code: I48.91 Status: Acute Plan: Right uncontrolled. Cardiology consultation appreciated Continue metoprolol, verapamil. Patient with INR 3.1 today. We'll continue to hold Coumadin for possible thoracentesis May need heparin if INR becomes subtherapeutic (6) Shingles outbreak ICD Code: B02.9 Status: Acute Plan: Right lower back, add acyclovir and follow renal function Discharge Planning Likely home with home health care versus [facility] facility Problem Qualifiers (1) Atrial fibrillation: Qualified Code: I48.91 - Atrial fibrillation, unspecified type Yolanda Albert MD Jan 03, 2017 13:04
[2017-01-04] VITALS (36 sets, daily range): BP systolic 81–134; BP diastolic 55–97; PULSE 80–132; RESP 14–32; TEMP 97.3–98; O2SAT 85–99
[2017-01-04] MEDS: METOPROLOL TARTRATE 50 MG TAB PO SCH ×3 (01:28→17:00)
[2017-01-04] MEDS: BUMETANIDE INJ 1 MG/4 ML VIAL IV PUSH SCH ×3 (01:28→17:40)
[2017-01-04] MEDS: ACYCLOVIR 800 MG TAB PO SCH ×5 (05:15→20:17)
[2017-01-04 05:47] LABS: INTERNATIONAL NORMALIZED RATIO 4.5 RATIO; PROTHROMBIN TIME - PATIENT 53.1 SEC (9.8-11.6)
[2017-01-04] MEDS ORDERED: PHYTONADIONE 5 MG TAB PO ONE (07:30)
[2017-01-04] MEDS: PRAVASTATIN SOD 40 MG TAB PO SCH (08:37)
[2017-01-04] MEDS: VERAPAMIL HCL 180 MG SUSTAINED RELEASE TAB PO SCH (08:38)
[2017-01-04] MEDS: FAMOTIDINE 20 MG TAB PO SCH (08:38)
[2017-01-04] MEDS: FLUDROCORTISONE ACETATE 0.1 MG TAB PO SCH (08:38)
--- NOTE | 2017-01-04 09:56 | PD.CARD.PN ---
Subjective Subjective Remarks PT without complaints on PRB Objective Medications Current Medications Medications (Trade) Dose Ordered Sig/[place] Route Start Time Stop Time Status Last Admin (NS Flush) 2 ml BID IVF 12/29/16 21:00 01/03/17 21:41 (NS Flush) 2 ml UNSCH PRN IVF 12/29/16 17:00 01/03/17 02:07 (Pravachol) 40 mg DAILY PO 12/30/16 09:00 01/04/17 08:37 (TRENtal SR) 400 mg TID PO 12/29/16 18:00 01/03/17 16:55 (Pepcid) 20 mg DAILY PO 12/30/16 09:00 01/04/17 08:38 Verapamil HCl 360 mg 360 mg DAILY PO 12/30/16 09:00 01/04/17 08:38 (Coumadin Consult Pharmacy) 0 ml @ 0 mls/hr UNSCH OTHER 12/30/16 12:00 (Pill Splitter) 1 ea UNSCH PRN OTHER 12/30/16 11:45 12/31/16 11:14 (Bumex Inj) 1 mg Q8H IV PUSH 01/01/17 10:00 01/04/17 08:37 (Levaquin) 750 mg DAILY@11 PO 01/02/17 11:00 01/03/17 10:54 (Lopressor) 50 mg Q8H PO 01/01/17 17:00 01/04/17 08:38 (Lopressor Inj) 5 mg Q2H PRN IV 01/01/17 22:00 (Benadryl) 50 mg HS PRN PO 01/02/17 13:00 01/03/17 21:41 (Coumadin) 2.5 mg DAILY@16 PO 01/02/17 16:00 Hold 01/02/17 17:33 Vital Signs / I&O Vital Signs Date Time Temp Pulse Resp B/P Pulse Ox O2 Delivery O2 Flow Rate FiO2 01/04/17 06:25 112 01/04/17 06:03 120 01/04/17 06:03 120 23 131/97 92 01/04/17 05:00 110 14 131/93 98 01/04/17 05:00 98 Partial Non-Rebreather 01/04/17 04:00 97 Partial Non-Rebreather 01/04/17 04:00 110 01/04/17 04:00 97.6 110 15 134/73 97 01/04/17 03:00 118 17 132/93 95 01/04/17 02:00 114 01/04/17 02:00 114 17 124/78 94 01/04/17 01:00 108 18 120/81 95 01/04/17 00:04 97.6 104 14 110/83 96 01/04/17 00:00 102 01/04/17 00:00 95 Partial Non-Rebreather 01/03/17 22:06 98 20 109/81 93 01/03/17 22:00 96 01/03/17 21:00 110 25 100/77 92 01/03/17 20:05 94 Partial Non-Rebreather 01/03/17 20:00 105 01/03/17 20:00 97.6 112 26 103/81 91 01/03/17 19:36 95 Partial Rebreather 13.00 01/03/17 19:00 116 26 107/71 93 01/03/17 18:00 116 01/03/17 18:00 114 24 115/76 99 01/03/17 17:00 98.1 112 23 113/63 92 01/03/17 17:00 112 23 113/63 92 01/03/17 16:00 102 15 104/81 97 01/03/17 16:00 93 Partial Non-Rebreather 80 01/03/17 16:00 102 01/03/17 15:00 98.3 94 13 92/62 99 01/03/17 14:41 102 17 114/89 96 01/03/17 14:00 98 01/03/17 12:00 102 20 99/73 92 01/03/17 12:00 93 Partial Non-Rebreather 80 01/03/17 12:00 102 01/03/17 11:02 114 17 86/72 99 01/03/17 11:00 122 15 87/66 100 01/03/17 10:00 114 01/03/17 10:00 114 13 100/67 98 I/O 01/03/17 01/03/17 01/03/17 01/04/17 01/04/17 01/04/17 07:00 15:00 23:00 07:00 15:00 23:00 Intake Total 150 ml 650 ml 120 ml 240 ml Output Total 600 ml 450 ml 300 ml 1 ml Balance -450 ml 200 ml -180 ml 239 ml Intake Oral 100 ml 600 ml 120 ml 240 ml Albumin 50 ml 50 ml Output Urine Total 600 ml 450 ml 300 ml Stool Total 0 ml 0 ml 1 ml # Voids 2 Physical Exam GENERAL: Well developed, well nourished. No acute distress. HEENT: Jugular venous pressure is normal. CHEST: Lungs clear and decreased in bases to auscultation bilaterally. Unlabored respiratory effort. CARDIAC: irregular rate and rhythm without S3, S4, or murmur. ABDOMEN: Soft, nontender, no hepatosplenomegaly. Bowel sounds present. EXTREMITIES: no edema. Laboratory Laboratory Tests Test 01/04/17 04:35 Prothrombin Time 53.1 SEC Prothromb Time International 4.5 RATIO Ratio Assessment and Plan Assessment and Plan AF - fair rate control -increase metoprolol - on coumadin, management per primary team CHF- EF decrease to 25-30% noted - I would continue present meds -small effusions I would consider medical management Bianca Reynoso MD Jan 04, 2017 09:56
[2017-01-04] MEDS ORDERED: METOPROLOL TARTRATE 25 MG TAB PO ONE (10:00)
[2017-01-04] MEDS: PENTOXIFYLLINE 400 MG CONTROLLED RELEASE TAB PO SCH ×3 (11:22→17:40)
[2017-01-04] MEDS: LEVOFLOXACIN 750 MG TAB PO SCH (11:22)
[2017-01-04] MEDS: SODIUM CHLORIDE 0.9% FLUSH 5 ML FLUSH IVF SCH ×2 (11:30→20:17)
--- NOTE | 2017-01-04 13:27 | HHI.PR ---
Subjective Remarks Patient seen and evaluated in room for congestive heart failure. Tolerating partial nonrebreather hypoxemia system but stable. Discussed with AGITATOR OPERATOR. Patient's blood pressure is a bit low however his heart rate is improved Objective Vitals Vital Signs Date Time Temp Pulse Resp B/P Pulse Ox O2 Delivery O2 Flow Rate FiO2 01/04/17 10:34 116 18 96/71 98 01/04/17 10:34 116 01/04/17 09:50 122 01/04/17 09:50 122 19 96 01/04/17 08:50 120 19 96 01/04/17 08:50 120 01/04/17 08:30 132 32 93 01/04/17 08:30 132 01/04/17 08:21 128 25 112/77 88 01/04/17 08:21 128 01/04/17 08:00 97 Partial Non-Rebreather 01/04/17 07:50 124 01/04/17 07:50 97.8 124 17 93 01/04/17 06:25 112 01/04/17 06:03 120 01/04/17 06:03 120 23 131/97 92 01/04/17 05:00 110 14 131/93 98 01/04/17 05:00 98 Partial Non-Rebreather 01/04/17 04:00 97 Partial Non-Rebreather 01/04/17 04:00 110 01/04/17 04:00 97.6 110 15 134/73 97 01/04/17 03:00 118 17 132/93 95 01/04/17 02:00 114 01/04/17 02:00 114 17 124/78 94 01/04/17 01:00 108 18 120/81 95 01/04/17 00:04 97.6 104 14 110/83 96 01/04/17 00:00 102 01/04/17 00:00 95 Partial Non-Rebreather 01/03/17 22:06 98 20 109/81 93 01/03/17 22:00 96 01/03/17 21:00 110 25 100/77 92 01/03/17 20:05 94 Partial Non-Rebreather 01/03/17 20:00 105 01/03/17 20:00 97.6 112 26 103/81 91 01/03/17 19:36 95 Partial Rebreather 13.00 01/03/17 19:00 116 26 107/71 93 01/03/17 18:00 116 01/03/17 18:00 114 24 115/76 99 01/03/17 17:00 98.1 112 23 113/63 92 01/03/17 17:00 112 23 113/63 92 01/03/17 16:00 102 15 104/81 97 01/03/17 16:00 93 Partial Non-Rebreather 80 01/03/17 16:00 102 01/03/17 15:00 98.3 94 13 92/62 99 01/03/17 14:41 102 17 114/89 96 01/03/17 14:00 98 I/O 01/03/17 01/03/17 01/03/17 01/04/17 01/04/17 01/04/17 07:00 15:00 23:00 07:00 15:00 23:00 Intake Total 150 ml 650 ml 120 ml 240 ml Output Total 600 ml 450 ml 300 ml 1 ml Balance -450 ml 200 ml -180 ml 239 ml Intake Oral 100 ml 600 ml 120 ml 240 ml Albumin 50 ml 50 ml Output Urine Total 600 ml 450 ml 300 ml Stool Total 0 ml 0 ml 1 ml # Voids 2 Result Diagram: 01/03/175 01/03/175 Objective Remarks Skin with right lower back vesicles which appear to follow a dermatome GENERAL: This is a well-nourished, well-developed patient, in no apparent distress. Calm, expressive aphasia at baseline CARDIOVASCULAR: Atrial fibrillation with rapid rate without murmurs, gallops, or rubs. RESPIRATORY: Decreased breath sounds bilaterally GASTROINTESTINAL: Abdomen soft, non-tender, nondistended. Normal active bowel sounds MUSCULOSKELETAL: Extremities without clubbing, cyanosis, or edema. NEURO: Alert & Oriented x4 to person, place, time, situation. Moves all ext x4 A/P Problem List: (1) Acute on chronic systolic congestive heart failure ICD Code: I50.23 Status: Acute Plan: Patient with systolic and diastolic heart failure and with elevated pulmonary artery pressures. And Continue diuresis and continue conservative treatments. Cardiology consultation appreciated. Patient on Bumex, fluid restriction, continue oxygenation Continue beta nirmal, LY inhibitor held due to acute kidney injury (2) Elevated troponin ICD Code: R79.89 Status: Acute Plan: Likely secondary to cardiac strain with atrial fibrillation and congestive heart failure, currently equivocal troponins. Continue surveillance and no intervention needed. Cardiology consult appreciated (3) Hyponatremia ICD Code: E87.1 Status: Acute Plan: Improved with fluid balance regulation. Likely secondary to congestive heart failure Replace hypokalemia (4) History of CVA with residual deficit ICD Code: I69.30 Status: Acute Plan: With residual aphasia and Currently at baseline with communication, uses a walker at home but lives with his (5) Atrial fibrillation ICD Code: I48.91 Status: Acute Plan: Right uncontrolled. Cardiology consultation appreciated Continue metoprolol, verapamil. Patient with INR 4.5 today. add vit k We'll continue to hold Coumadin for possible thoracentesis May need heparin if INR becomes subtherapeutic (6) Shingles outbreak ICD Code: B02.9 Status: Acute Plan: Right lower back, add acyclovir and follow renal function Discharge Planning Likely home with home health care versus [facility] facility Problem Qualifiers (1) Atrial fibrillation: Qualified Code: I48.91 - Atrial fibrillation, unspecified type Yolanda Albert MD Jan 04, 2017 13:27
[2017-01-05] VITALS (33 sets, daily range): BP systolic 78–145; BP diastolic 55–97; PULSE 66–126; RESP 13–33; TEMP 97.5–97.8; O2SAT 86–96
[2017-01-05] MEDS: BUMETANIDE INJ 1 MG/4 ML VIAL IV PUSH SCH ×3 (01:01→16:57)
[2017-01-05] MEDS: METOPROLOL TARTRATE 50 MG TAB PO SCH ×3 (01:01→16:57)
[2017-01-05] MEDS: ACYCLOVIR 800 MG TAB PO SCH ×5 (05:46→21:43)
[2017-01-05 07:01] LABS: INTERNATIONAL NORMALIZED RATIO 1.3 RATIO; PROTHROMBIN TIME - PATIENT 15.1 SEC (9.8-11.6)
[2017-01-05 07:08] LABS: BICARBONATE 33.2 MEQ/L (21.0-32.0); POTASSIUM 4.2 MEQ/L (3.5-5.1)
[2017-01-05] MEDS: FAMOTIDINE 20 MG TAB PO SCH (07:51)
[2017-01-05] MEDS: SODIUM CHLORIDE 0.9% FLUSH 5 ML FLUSH IVF SCH ×2 (07:54→21:44)
[2017-01-05] MEDS: PRAVASTATIN SOD 40 MG TAB PO SCH (07:54)
[2017-01-05] MEDS: VERAPAMIL HCL 180 MG SUSTAINED RELEASE TAB PO SCH (07:54)
[2017-01-05] MEDS: PENTOXIFYLLINE 400 MG CONTROLLED RELEASE TAB PO SCH ×3 (07:54→16:58)
--- NOTE | 2017-01-05 13:08 | HHI.PR ---
Subjective Remarks Patient seen in follow-up for respiratory failure secondary to congestive heart failure, still awaiting Thoracentesis. INR is subtherapeutic today and patient' s steady but still in respiratory failure and requiring high oxygen support. Discussed with RT, ERP PROGRAMMER. Discussed with patient. Objective Vitals Vital Signs Date Time Temp Pulse Resp B/P Pulse Ox O2 Delivery O2 Flow Rate FiO2 01/05/17 12:00 68 25 105/68 92 01/05/17 11:31 66 24 99/66 94 01/05/17 11:00 74 31 78/55 88 01/05/17 10:52 96 Partial Rebreather 13.00 01/05/17 10:00 96 33 101/57 87 01/05/17 09:00 120 25 98/63 94 01/05/17 08:00 126 24 118/69 91 01/05/17 07:00 97.5 120 25 122/74 89 01/05/17 06:50 116 25 86 01/05/17 06:00 118 01/05/17 06:00 118 23 125/72 87 01/05/17 05:00 108 19 119/81 90 01/05/17 04:00 97.8 108 17 117/71 91 01/05/17 04:00 108 01/05/17 04:00 91 Partial Non-Rebreather 01/05/17 03:00 104 18 145/97 92 01/05/17 02:00 106 01/05/17 02:00 106 20 121/66 91 01/05/17 01:00 114 15 92 01/05/17 00:00 110 01/05/17 00:00 97.8 110 19 123/92 94 01/05/17 00:00 94 Partial Non-Rebreather 01/04/17 23:00 108 21 102/67 90 01/04/17 22:00 108 26 118/94 92 01/04/17 22:00 108 01/04/17 21:00 110 26 113/65 89 01/04/17 20:51 95 Partial Rebreather 13.00 01/04/17 20:00 120 01/04/17 20:00 97.3 114 21 113/80 90 01/04/17 20:00 92 Partial Non-Rebreather 01/04/17 19:00 108 21 92 01/04/17 17:11 97.4 110 14 118/69 96 01/04/17 16:11 108 29 115/75 93 01/04/17 16:00 96 Partial Non-Rebreather 01/04/17 16:00 106 01/04/17 15:11 106 22 110/74 93 01/04/17 14:50 114 28 88 01/04/17 14:00 98 23 123/72 89 01/04/17 14:00 98 01/04/17 13:50 88 19 96 I/O 01/04/17 01/04/17 01/04/17 01/05/17 01/05/17 01/05/17 07:00 15:00 23:00 07:00 15:00 23:00 Intake Total 240 ml 400 ml 120 ml 240 ml Output Total 1 ml 460 ml 300 ml 400 ml Balance 239 ml -60 ml -180 ml -160 ml Intake Oral 240 ml 400 ml 120 ml 240 ml Output Urine Total 460 ml 300 ml 400 ml Stool Total 1 ml 0 ml # Voids 2 # Bowel Movements 1 0 Result Diagram: 01/03/17 0445 01/05/17 0607 Objective Remarks Skin with right lower back vesicles which appear to follow a dermatome GENERAL: This is a well-nourished, well-developed patient, in no apparent distress. Calm, expressive aphasia at baseline CARDIOVASCULAR: Atrial fibrillation with rapid rate without murmurs, gallops, or rubs. RESPIRATORY: Decreased breath sounds bilaterally GASTROINTESTINAL: Abdomen soft, non-tender, nondistended. Normal active bowel sounds MUSCULOSKELETAL: Extremities without clubbing, cyanosis, or edema. NEURO: Alert & Oriented x4 to person, place, time, situation. Moves all ext x4 A/P Problem List: (1) Acute on chronic systolic congestive heart failure ICD Code: I50.23 Status: Acute Plan: Patient with systolic and diastolic heart failure and with elevated pulmonary artery pressures. Patient continues with diuresis and continue conservative treatments. Cardiology consultation appreciated. Patient on Bumex, fluid restriction, continue oxygenation Continue beta nirmal, LY inhibitor held due to acute kidney injury (2) Elevated troponin ICD Code: R79.89 Status: Acute Plan: Likely secondary to cardiac strain with atrial fibrillation and congestive heart failure, currently equivocal troponin. Continue surveillance and no intervention needed. Cardiology consult appreciated (3) Hyponatremia ICD Code: E87.1 Status: Acute Plan: Improved with fluid balance regulation. Likely secondary to congestive heart failure Replace hypokalemia (4) History of CVA with residual deficit ICD Code: I69.30 Status: Acute (5) Atrial fibrillation ICD Code: I48.91 Status: Acute Plan: Right better controlled. Cardiology consultation appreciated Continue metoprolol, verapamil. Patient with INR 1.3 today. Will add Lovenox We'll continue to hold Coumadin for possible thoracentesis May need heparin if INR becomes subtherapeutic (6) Shingles outbreak ICD Code: B02.9 Status: Acute Plan: Right lower back, cont course of acyclovir and follow renal function (7) Hypotension ICD Code: I95.9 Status: Acute Plan: On verapamil and metoprolol for his heart rate. Appears to have some intermittent hypotension Discharge Planning Likely home with home [facility] care [facility] Problem Qualifiers (1) Atrial fibrillation: Qualified Code: I48.91 - Atrial fibrillation, unspecified type Yolanda Albert MD Jan 05, 2017 13:08
[2017-01-05] MEDS: LEVOFLOXACIN 750 MG TAB PO SCH (13:24)
[2017-01-05] MEDS: ENOXAPARIN SODIUM 60 MG/0.6 ML SYRINGE SQ SCH (14:16)
[2017-01-05] MEDS: ACETAMINOPHEN/HYDROcodone 325 MG/5 MG TAB PO PRN ×2 (16:57→21:44)
[2017-01-05] MEDS: diphenhydrAMINE HCL 50 MG CAP PO PRN (21:43)
--- NOTE | 2017-01-05 23:49 | HHI.PR ---
Addendum to Inpatient Note Addendum Reason: Additional Documentation Additional Information Notified by nursing that patient is refusing bi-pap tonight. His vital signs are stable and he is not in any distress but oxygen saturations remain 86 - 91%. . Janet Bloom Jan 05, 2017 23:49
[2017-01-06] VITALS (40 sets, daily range): BP systolic 81–131; BP diastolic 56–98; PULSE 67–112; RESP 13–32; TEMP 97.2–98; O2SAT 84–100
[2017-01-06] MEDS: METOPROLOL TARTRATE 50 MG TAB PO SCH ×3 (00:40→18:28)
[2017-01-06] MEDS: ENOXAPARIN SODIUM 60 MG/0.6 ML SYRINGE SQ SCH ×2 (02:10→13:43)
[2017-01-06] MEDS: BUMETANIDE INJ 1 MG/4 ML VIAL IV PUSH SCH ×3 (02:10→18:22)
[2017-01-06] MEDS: ACYCLOVIR 800 MG TAB PO SCH ×5 (05:14→22:04)
[2017-01-06 06:22] LABS: INTERNATIONAL NORMALIZED RATIO 1.2 RATIO
[2017-01-06 09:02] LABS: BLOOD GAS BASE EXCESS 7.1 mmol/L (-2-2); BLOOD GAS CARBOXYHEMOGLOBIN 1.5 % (0-4); BLOOD GAS HCO3 32 mmol/L (22-26); BLOOD GAS METHEMOGLOBIN 0.7 % (0-2); BLOOD GAS O2 HGB SATURATION 88 % (90-100); BLOOD GAS OXYGEN CONTENT 14.8 Vol % (12.0-20.0); BLOOD GAS PCO2 51 mmHg (38-42); BLOOD GAS PO2 59 mmHg (61-120)
[2017-01-06 09:04] LABS: DRAW SITE LT BRACHIAL; FIO2 100 %; LITER FLOW 40 L/M; OXYGEN DEVICE HIFLO/NC
[2017-01-06 09:05] LABS: CRITICAL VALUE YES; NUMBER OF ARTERIAL PUNCTURES 2; STAT NO; ULNAR PULSE PRESENT
--- NOTE | 2017-01-06 09:18 | HHI.PR ---
Subjective Remarks Patient seen and evaluated today follow-up for respiratory failure secondary to heart failure. Tolerated BiPAP to some degree overnight still room with hypoxemia and now with some CO2 retention. Care plan discussed with respiratory therapy Objective Vitals Vital Signs Date Time Temp Pulse Resp B/P Pulse Ox O2 Delivery O2 Flow Rate FiO2 01/06/17 08:12 98 High Flow Nasal Cannula 39.00 100 01/06/17 08:00 94 Non-Rebreather 15.00 01/06/17 06:14 98 50 01/06/17 06:13 96 Bi-Pap 50 01/06/17 06:00 96 01/06/17 06:00 108 14 113/76 97 01/06/17 05:00 100 25 102/73 94 01/06/17 05:00 100 25 102/73 94 01/06/17 04:25 98 60 01/06/17 04:00 102 24 116/78 94 01/06/17 04:00 92 Bi-Pap 70 01/06/17 04:00 97.4 102 24 116/78 94 01/06/17 04:00 90 Bi-Pap 60 01/06/17 04:00 110 01/06/17 03:08 99 70 01/06/17 03:00 100 13 123/98 97 01/06/17 03:00 100 13 123/98 97 01/06/17 02:00 102 27 114/70 99 01/06/17 02:00 102 27 114/70 99 01/06/17 02:00 104 01/06/17 01:00 102 24 106/65 99 01/06/17 01:00 102 24 106/65 99 01/06/17 00:45 99 90 01/06/17 00:25 95 100 01/06/17 00:00 88 Nasal Cannula 100 01/06/17 00:00 107 01/06/17 00:00 97.5 102 21 100/69 88 01/06/17 00:00 102 21 100/69 84 01/05/17 23:48 100 27 108/74 86 01/05/17 23:45 102 25 88/56 87 01/05/17 22:44 13 01/05/17 22:00 96 01/05/17 22:00 106 25 111/ 89 01/05/17 21:06 108 20 111/78 86 01/05/17 20:01 97.6 106 13 112/82 89 01/05/17 20:00 93 Nasal Cannula 3.00 01/05/17 20:00 80 01/05/17 19:42 90 High Flow Nasal Cannula 40.00 100 01/05/17 19:01 110 33 113/76 86 01/05/17 18:01 106 21 106/70 92 01/05/17 18:00 106 01/05/17 17:01 110 21 105/84 93 01/05/17 16:32 93 High Flow Nasal Cannula 40.00 100 01/05/17 16:01 116 28 107/76 01/05/17 16:01 116 01/05/17 16:00 93 Partial Non-Rebreather 01/05/17 15:01 96 17 107/61 94 01/05/17 14:01 97.8 82 16 111/72 96 01/05/17 14:00 86 01/05/17 13:00 76 24 106/69 93 01/05/17 12:00 68 25 105/68 92 01/05/17 12:00 92 Partial Non-Rebreather 01/05/17 12:00 68 01/05/17 11:31 66 24 99/66 94 01/05/17 11:00 74 31 78/55 88 01/05/17 10:52 96 Partial Rebreather 13.00 01/05/17 10:00 96 33 101/57 87 01/05/17 10:00 96 I/O 01/05/17 01/05/17 01/05/17 01/06/17 01/06/17 01/06/17 07:00 15:00 23:00 07:00 15:00 23:00 Intake Total 240 ml 220 ml 60 ml 60 ml Output Total 400 ml 200 ml 275 ml 250 ml Balance -160 ml 20 ml -215 ml -190 ml Intake Oral 240 ml 220 ml 60 ml 60 ml Output Urine Total 400 ml 200 ml 275 ml 250 ml # Bowel Movements 0 0 0 0 Result Diagram: 01/03/17 0445 01/05/17 0607 Objective Remarks Skin with right lower back vesicles which appear to follow a dermatome GENERAL: This is a well-nourished, well-developed patient, in no apparent distress. Calm, expressive aphasia at baseline CARDIOVASCULAR: Atrial fibrillation with rapid rate without murmurs, gallops, or rubs. RESPIRATORY: Decreased breath sounds bilaterally GASTROINTESTINAL: Abdomen soft, non-tender, nondistended. Normal active bowel sounds MUSCULOSKELETAL: Extremities without clubbing, cyanosis, or edema. NEURO: Alert & Oriented x4 to person, place, time, situation. Moves all ext x4 A/P Problem List: (1) Acute on chronic systolic congestive heart failure ICD Code: I50.23 Status: Acute Plan: Patient with systolic and diastolic heart failure and with elevated pulmonary artery pressures. Patient continues with diuresis and continue conservative treatments. Cardiology consultation appreciated. Patient on Bumex, fluid restriction, continue oxygenation Continue beta nirmal, LY inhibitor held due to acute kidney injury repeat cxr today (2) Elevated troponin ICD Code: R79.89 Status: Acute Plan: Likely secondary to cardiac strain with atrial fibrillation and congestive heart failure, currently equivocal troponin. Continue surveillance and no intervention needed. Cardiology consult appreciated (3) Hyponatremia ICD Code: E87.1 Status: Acute Plan: Improved with fluid balance regulation. Likely secondary to congestive heart failure Replace hypokalemia (4) History of CVA with residual deficit ICD Code: I69.30 Status: Acute Plan: at baseline per family (5) Atrial fibrillation ICD Code: I48.91 Status: Acute Plan: Right better controlled. Cardiology consultation appreciated Continue metoprolol, verapamil. Patient with INR 1.2 today. now on lmwh bid We'll continue to hold Coumadin for possible thoracentesis saturday (6) Shingles outbreak ICD Code: B02.9 Status: Acute Plan: Right lower back, cont course of acyclovir and follow renal function (7) Hypotension ICD Code: I95.9 Status: Acute Plan: On verapamil and metoprolol for his heart rate. Appears to have some intermittent hypotension Discharge Planning Likely home with home health care versus jail facility Problem Qualifiers (1) Atrial fibrillation: Qualified Code: I48.91 - Atrial fibrillation, unspecified type Yolanda Albert MD Jan 06, 2017 09:18
[2017-01-06] MEDS: FLUDROCORTISONE ACETATE 0.1 MG TAB PO SCH (09:32)
[2017-01-06] MEDS: PRAVASTATIN SOD 40 MG TAB PO SCH (09:33)
[2017-01-06] MEDS: PENTOXIFYLLINE 400 MG CONTROLLED RELEASE TAB PO SCH ×3 (09:33→18:22)
[2017-01-06] MEDS: FAMOTIDINE 20 MG TAB PO SCH (09:33)
[2017-01-06] MEDS: VERAPAMIL HCL 180 MG SUSTAINED RELEASE TAB PO SCH (09:35)
--- NOTE | 2017-01-06 10:29 | RADHPO ---
EXAM DATE/TIME: 01/06/2017 10:00 [facility] COMPARISON: CHEST SINGLE AP, January 02, 2017, 15:37. INDICATIONS : Pleural effusion, short of breath MEDICAL HISTORY : Congestive heart failure. Myocardial infarction. SURGICAL HISTORY : CABG. ENCOUNTER: Initial ACUITY: 1 week PAIN SCORE: 0/10 LOCATION: Bilateral chest FINDINGS: Diffuse airspace opacities with moderate right and small left pleural effusions are again noted and a ll not significantly changed. Mild cardiomegaly is stable. Patient has had previous median sternotomy . No pneumothorax. CONCLUSION: No significant change diffuse airspace opacities and right greater than left effusions. Gregor Smith MD on January 06, 2017 at 10:27 Board Certified Radiologist. This report was verified electronically.
[2017-01-06] MEDS: SODIUM CHLORIDE 0.9% FLUSH 5 ML FLUSH IVF SCH ×2 (12:10→20:30)
[2017-01-06] MEDS: LEVOFLOXACIN 750 MG TAB PO SCH (12:10)
--- NOTE | 2017-01-06 18:26 | RADHPO ---
EXAM DATE/TIME: 01/06/2017 18:12 [facility] COMPARISON: CHEST SINGLE AP, January 06, 2017, 10:00. INDICATIONS : Status post thoracentesisi MEDICAL HISTORY : Congestive heart failure. Myocardial infarction. SURGICAL HISTORY : CABG. ENCOUNTER: Subsequent ACUITY: 1 week PAIN SCORE: 0/10 LOCATION: Bilateral chest FINDINGS: A single view of the chest demonstrates hazy opacity throughout the left lung. Minimal right basilar density. No pneumothorax. Heart enlarged. Previous CABG.. Osseous structures are intact. CONCLUSION: Right-sided thoracentesis without pneumothorax. Juan Earl MD on January 06, 2017 at 18:24 Board Certified Radiologist. This report was verified electronically.
--- NOTE | 2017-01-06 19:15 | MB ---
cc: WAQAR GOODMAN DATE OF CONSULTATION 01/06/2017 REASON FOR CONSULTATION Respiratory distress and pleural effusion. HISTORY OF THE PRESENT ILLNESS This is a 76-year-old white male who has a prior history of CHF and history of weight loss was brought in for shortness of breath and orthopnea and generalized weakness. The patient has also had some epigastric and abdominal pain. And upon arrival in the ER he was noted to have evidence for pulmonary edema and pleural effusions as well as basilar infiltrates. The patient was hypoxic and had to be on BiPap. Over the past 4 days his oxygenation has improved, however he still needs to be on high-flow oxygen during the day. Today he is on BiPAP, his sats running in the 95-97 range. The patient is quite weak and he denied any chest pain. Denied nausea, vomiting. Blood gases were done today which showed a pCO2 of 51, pO2 of 59 on high-flow O2. PAST MEDICAL HISTORY The patient's past history has included: 1. History for atrial fibrillation. 2. CHF. 3. History of chronic kidney disease. 4. History of hyperlipidemia. 5. And previous CVA with residual. 6. History of myocardial infarction. 7. History of prostate cancer with cryotherapy. PAST SURGICAL HISTORY Surgery includes: 1. Coronary artery bypass grafting x3. 2. Tonsillectomy. 3. Cholecystectomy. 4. Previous thoracentesis. 5. And cryosurgery. ALLERGIES None listed. FAMILY HISTORY Significant for heart disease. SOCIAL HISTORY Habits, the patient smoked one-half to one pack per day for over 20 years and then quit. Alcohol use none recently. MEDICATIONS 1. Pentoxifylline 400 milligrams three times a day. 2. Atenolol 50 milligrams daily. 3. Zantac 150 milligrams daily. 4. Jantoven 3 milligrams daily. 5. Metformin 1000 milligrams twice a day. 6. Lortab one as needed. 7. Fludrocortisone acetate 0.1 milligram every other day. 8. Oral iron one daily. 9. Lovastatin 40 milligrams daily. ALLERGIES NONE. REVIEW OF SYSTEMS The patient is on a BiPAP, unable to answer any questions appropriately. PHYSICAL EXAMINATION GENERAL: This average built elderly man who is pale and mildly dyspneic on BiPAP. VITAL SIGNS: Blood pressure 140/70, pulse is 105, respiratory rate 22, temperature 98.5. HEENT: Head is normocephalic. Pupils are reactive. Tongue is dry. Throat is injected. Nasal mucosa is clear. NECK: Supple. No bruits. Mild venous distention at 45 degrees. Trachea is midline. CHEST: Equal movements. Decreased breath sounds over the right lower chest. Dullness to percussion of the right base. There are occasional bibasilar crackles. HEART: Sounds are irregularly irregular S1-S2. No definite murmur. ABDOMEN: Soft. Scaphoid. No masses. No organomegaly or tenderness. EXTREMITIES: Edema 1+ with diminished pulses. Reflexes are 1+ with no gross motor deficits. NEUROLOGICAL: Cranial nerves not tested. RECTAL: Examination is deferred. SKIN: No lesions observed. IMPRESSION 1. Congestive heart failure with bibasilar effusions, right more than left. 2. Atrial fibrillation and arteriosclerotic heart disease. 3. History of hypertension. 4. Diabetes mellitus type 2. 5. Probable COPD. PLAN The patient will be maintained on a Venti-mask at 50%. He will have a thoracentesis done and then resume Coumadin. Nebulized DuoNeb solution added q.i.d. The patient will need a PFT at the bedside. O2 will be weaned down after the thoracentesis. I will follow and discuss the case with you . Thank you for this consultation. MD AMOL Humphrey/TRAVIS /5:34 PM /6:56 PM
[2017-01-06] MEDS: ACETAMINOPHEN/HYDROcodone 325 MG/5 MG TAB PO PRN (20:30)
[2017-01-06 20:53] LABS: PLEURAL FLUID LYMPHS 73 %
--- NOTE | 2017-01-06 21:03 | MP ---
cc: WAQAR VILLAFANA DATE OF SURGERY 01/06/17 PROCEDURE Right thoracentesis. PREOPERATIVE DIAGNOSIS Right pleural effusion. ANESTHESIA 1% Xylocaine. SURGEON Dr. Jay Villafana PROCEDURE AND FINDINGS The patient's right posterior back was prepped with chlorhexidine solution following which sterile drapes are applied. 1% Xylocaine was then injected intracostal space in the posterior axillary line, after which a small incision made with a scalpel blade. Following this a 14-gauge catheter was inserted into the pleural space. This was connected to a vacuum bottle and approximately 850 cc of serosanguineous fluid was aspirated at which time the flow stopped. The patient tolerated the procedure well. Waqar Villafana MD JVD/EO /6:04 PM /9:00 PM
[2017-01-06 21:44] LABS: TOTAL PROTEIN,PLEURAL FLUID 3.5 GM/DL
[2017-01-07] VITALS (26 sets, daily range): BP systolic 87–135; BP diastolic 52–122; PULSE 74–122; RESP 17–31; TEMP 97.4–98.2; O2SAT 90–99
[2017-01-07] MEDS: METOPROLOL TARTRATE 50 MG TAB PO SCH ×3 (00:53→17:00)
[2017-01-07] MEDS: ENOXAPARIN SODIUM 60 MG/0.6 ML SYRINGE SQ SCH ×2 (00:56→15:56)
[2017-01-07] MEDS: BUMETANIDE INJ 1 MG/4 ML VIAL IV PUSH SCH ×3 (00:56→18:19)
[2017-01-07] MEDS: ACYCLOVIR 800 MG TAB PO SCH ×5 (05:29→21:48)
[2017-01-07 06:07] LABS: INTERNATIONAL NORMALIZED RATIO 1.2 RATIO
[2017-01-07 06:12] LABS: BICARBONATE 36.1 MEQ/L (21.0-32.0); POTASSIUM 3.3 MEQ/L (3.5-5.1)
[2017-01-07] MEDS: SODIUM CHLORIDE 0.9% FLUSH 5 ML FLUSH IVF SCH ×2 (09:00→20:20)
[2017-01-07] MEDS: FAMOTIDINE 20 MG TAB PO SCH (09:00)
[2017-01-07] MEDS: PRAVASTATIN SOD 40 MG TAB PO SCH (09:00)
[2017-01-07] MEDS: VERAPAMIL HCL 180 MG SUSTAINED RELEASE TAB PO SCH (09:00)
[2017-01-07] MEDS: PENTOXIFYLLINE 400 MG CONTROLLED RELEASE TAB PO SCH ×3 (09:00→18:19)
[2017-01-07] MEDS ORDERED: ZOLPIDEM TARTRATE 10 MG TAB PO PRN (10:45)
--- NOTE | 2017-01-07 10:53 | HHI.PR ---
Subjective Remarks She was seen and evaluated today in follow-up for respiratory failure. Patient with thoracentesis overnight by pulmonary consultation appreciated. 850 mL out of the right side. Patient still hypoxemic and salicylate on the left side which were evaluated earlier today by ultrasound for possible thoracentesis. Patient still remains hypoxemic and with A. fib which is variable and rate control. Hypotension better. Patient with significant insomnia and unable to sleep. Benadryl not effective. Care plan discussed with MUD ENGINEER Objective Vitals Vital Signs Date Time Temp Pulse Resp B/P Pulse Ox O2 Delivery O2 Flow Rate FiO2 01/07/17 07:25 94 Nasal Cannula 35.00 01/07/17 07:00 98.1 112 27 111/61 90 01/07/17 06:00 117 01/07/17 06:00 108 17 109/78 93 01/07/17 05:00 106 19 124/79 95 01/07/17 04:00 97.4 104 22 129/69 94 01/07/17 04:00 93 Nasal Cannula 100 01/07/17 04:00 113 01/07/17 03:55 97.4 104 22 129/69 94 01/07/17 02:55 98 18 102/73 93 01/07/17 02:00 101 01/07/17 01:55 100 17 105/63 94 01/07/17 00:00 98.2 106 26 103/57 94 01/07/17 00:00 111 01/07/17 00:00 96 Nasal Cannula 01/06/17 23:00 67 96 01/06/17 22:55 102 14 107/76 94 01/06/17 22:55 102 14 107/76 94 01/06/17 22:00 102 19 95 01/06/17 22:00 68 01/06/17 21:55 104 13 97/64 93 01/06/17 21:49 104 16 100/67 93 01/06/17 21:30 16 01/06/17 20:55 106 13 110/77 95 01/06/17 20:55 98.0 106 13 110/77 95 01/06/17 20:21 97 High Flow Nasal Cannula 35.00 100 01/06/17 20:00 106 01/06/17 20:00 96 Nasal Cannula 100 01/06/17 19:55 104 24 116/77 93 01/06/17 19:02 100 24 112/79 98 01/06/17 18:30 104 20 100/69 97 01/06/17 18:23 94 25 98/66 98 01/06/17 18:15 94 25 98/66 98 01/06/17 18:00 86 01/06/17 18:00 86 21 81/63 100 01/06/17 18:00 86 21 81/63 100 01/06/17 17:40 99 High Flow Nasal Cannula 35.00 100 01/06/17 17:00 80 32 98/61 95 01/06/17 16:00 99 Nasal Cannula 100 01/06/17 16:00 70 01/06/17 16:00 97.2 70 13 98/61 97 01/06/17 15:00 70 25 107/61 91 01/06/17 14:59 93 60 01/06/17 14:00 68 19 88/60 97 01/06/17 14:00 97 Nasal Cannula 100 01/06/17 14:00 68 01/06/17 13:00 76 20 83/58 94 01/06/17 13:00 94 Nasal Cannula 100 01/06/17 12:00 97.5 90 21 99/62 96 01/06/17 12:00 96 Nasal Cannula 100 01/06/17 12:00 90 01/06/17 11:00 95 Nasal Cannula 100 01/06/17 11:00 106 22 100/56 98 I/O 01/06/17 01/06/17 01/06/17 01/07/17 01/07/17 01/07/17 07:00 15:00 23:00 07:00 15:00 23:00 Intake Total 60 ml 480 ml 60 ml 12 ml Output Total 250 ml 275 ml 250 ml 600 ml Balance -190 ml 205 ml -190 ml -588 ml Intake Oral 60 ml 480 ml 60 ml 12 ml IV Total 0 ml Output Urine Total 250 ml 275 ml 250 ml 600 ml # Bowel Movements 0 0 0 0 Result Diagram: 01/03/17 0445 01/07/17 0514 Objective Remarks Skin with right lower back vesicles improved GENERAL: This is a well-nourished, well-developed patient, in no apparent distress. Calm, expressive aphasia at baseline CARDIOVASCULAR: Atrial fibrillation with rapid rate without murmurs, gallops, or rubs. RESPIRATORY: Decreased breath sounds bilaterally, improved aeration right side GASTROINTESTINAL: Abdomen soft, non-tender, nondistended. Normal active bowel sounds MUSCULOSKELETAL: Extremities without clubbing, cyanosis, or edema. NEURO: Alert & Oriented x4 to person, place, time, situation. Moves all ext x4 A/P Problem List: (1) Acute on chronic systolic congestive heart failure ICD Code: I50.23 Status: Acute Plan: Patient with systolic and diastolic heart failure and with elevated pulmonary artery pressures. Patient continues with diuresis and continue conservative treatments with Bumex , fluid restriction, continue oxygenation Continue beta nirmal, LY inhibitor held due to acute kidney injury repeat cxr showed persistent effusion and no PTX after thoracentesis (right sided 850 ml) Left thoracentesis today per US (2) History of CVA with residual deficit ICD Code: I69.30 Status: Acute Plan: at baseline per family (3) Atrial fibrillation ICD Code: I48.91 Status: Acute Plan: Right better controlled. Cardiology consultation appreciated Continue metoprolol, verapamil. Patient with INR 1.2 today. now on lmwh bid We'll continue to hold Coumadin for possible thoracentesis saturday (4) Shingles outbreak ICD Code: B02.9 Status: Acute Plan: Right lower back, cont course of acyclovir x7d (5) Hypotension ICD Code: I95.9 Status: Acute Plan: On verapamil and metoprolol for his heart rate. Appears to have some intermittent hypotension (6) Insomnia ICD Code: G47.00 Status: Acute Plan: ambien prn hs (7) Hypokalemia ICD Code: E87.6 Status: Acute Plan: replace , check mag Discharge Planning Likely home with home health care versus [facility] facility Problem Qualifiers (1) Atrial fibrillation: Qualified Code: I48.91 - Atrial fibrillation, unspecified type Yolanda Albert MD Jan 07, 2017 10:52
[2017-01-07] MEDS ORDERED: POTASSIUM CHLORIDE 20 MEQ CONTROLLED RELEASE TAB PO SCH (11:00)
--- NOTE | 2017-01-07 12:04 | RADHPO ---
EXAM DATE/TIME: 01/07/2017 11:30 [facility] COMPARISON: No previous studies available for comparison. INDICATIONS : Left pleural effusion. MEDICAL HISTORY : Myocardial infarction. Congestive heart failure. Hypercholesterolemia. CVA. CAD. Hypertension. Arthri tis. Diabetes. Prostate cancer. Skin cancer. Radiation therapy. SURGICAL HISTORY : CABG. Cholecystectomy. Prostatectomy. ENCOUNTER: Subsequent ACUITY: 4-6 days PAIN SCORE: 0/10 LOCATION: Left chest MEASUREMENTS: SKIN TO PARIETAL PLEURA: Inadequate fluid SKIN TO MAX SAFE DEPTH: Inadequate fluid ESTIMATED FLUID VOLUME: 83.24 cc FLUID COMPOSITION: simple FINDINGS: No marking was performed. Inadequate fluid in the left chest for thoracentesis. CONCLUSION: Small amount of fluid estimated at 83 cc. Juan Earl MD on January 07, 2017 at 12:01 Board Certified Radiologist. This report was verified electronically.
[2017-01-07] MEDS: LEVOFLOXACIN 750 MG TAB PO SCH (12:35)
[2017-01-07] MEDS: WARFARIN SOD 2.5 MG TAB PO SCH (16:30)
--- NOTE | 2017-01-07 19:07 | HHI.PR ---
Subjective Remarks Better after thoracentesis. CXr still shows some effusions. Mild pulmonary edema. Objective Vital Signs Date Time Temp Pulse Resp B/P Pulse Ox O2 Delivery O2 Flow Rate FiO2 01/07/17 18:00 78 01/07/17 18:00 78 27 87/52 92 01/07/17 17:00 82 24 96/68 95 01/07/17 16:00 97.4 76 29 95/52 94 01/07/17 16:00 76 01/07/17 16:00 93 Nasal Cannula 100 01/07/17 15:00 74 24 88/54 94 01/07/17 14:00 102 01/07/17 14:00 102 24 135/122 98 01/07/17 13:00 104 28 99/73 99 01/07/17 12:00 98.2 112 30 109/67 93 01/07/17 12:00 99 Nasal Cannula 100 01/07/17 12:00 110 01/07/17 10:00 122 31 119/74 90 01/07/17 10:00 120 01/07/17 08:00 108 01/07/17 08:00 106 24 127/86 91 01/07/17 08:00 92 Nasal Cannula 100 01/07/17 07:25 94 Nasal Cannula 35.00 01/07/17 07:00 98.1 112 27 111/61 90 01/07/17 06:00 117 01/07/17 06:00 108 17 109/78 93 01/07/17 05:00 106 19 124/79 95 01/07/17 04:00 97.4 104 22 129/69 94 01/07/17 04:00 93 Nasal Cannula 100 01/07/17 04:00 113 01/07/17 03:55 97.4 104 22 129/69 94 01/07/17 02:55 98 18 102/73 93 01/07/17 02:00 101 01/07/17 01:55 100 17 105/63 94 01/07/17 00:00 98.2 106 26 103/57 94 01/07/17 00:00 111 01/07/17 00:00 96 Nasal Cannula 01/06/17 23:00 67 96 01/06/17 22:55 102 14 107/76 94 01/06/17 22:55 102 14 107/76 94 01/06/17 22:00 102 19 95 2/26/17 22:00 68 01/06/17 21:55 104 13 97/64 93 01/06/17 21:49 104 16 100/67 93 01/06/17 21:30 16 01/06/17 20:55 106 13 110/77 95 01/06/17 20:55 98.0 106 13 110/77 95 01/06/17 20:21 97 High Flow Nasal Cannula 35.00 100 01/06/17 20:00 106 01/06/17 20:00 96 Nasal Cannula 100 01/06/17 19:55 104 24 116/77 93 I/O 01/06/17 01/06/17 01/06/17 01/07/17 01/07/17 01/07/17 07:00 15:00 23:00 07:00 15:00 23:00 Intake Total 60 ml 480 ml 60 ml 12 ml 480 ml Output Total 250 ml 275 ml 250 ml 600 ml 150 ml Balance -190 ml 205 ml -190 ml -588 ml 330 ml Intake Oral 60 ml 480 ml 60 ml 12 ml 480 ml IV Total 0 ml 0 ml Output Urine Total 250 ml 275 ml 250 ml 600 ml 150 ml # Bowel Movements 0 0 0 0 0 Result Diagram: 01/03/17 0445 01/07/17 0514 Objective Remarks GENERAL: This average built elderly man who is pale and mildly dyspneic on Oxygen High flow. HEENT: Head is normocephalic. Pupils are reactive. Tongue is dry. Throat is injected. Nasal mucosa is clear. NECK: Supple. No bruits. Mild venous distention at 45 degrees. Trachea is midline. CHEST: Equal movements. Decreased breath sounds over the right lower chest. . There are occasional bibasilar crackles. HEART: Sounds are irregularly irregular S1-S2. No definite murmur. ABDOMEN: Soft. Scaphoid. No masses. No organomegaly or tenderness. EXTREMITIES: Edema 1+ with diminished pulses. Reflexes are 1+ with no gross motor deficits. NEUROLOGICAL: Cranial nerves not tested. RECTAL: Examination is deferred. SKIN: No lesions observed. Assessment and Plan Assessment and Plan IMPRESSION 1. Congestive heart failure with bibasilar effusions, right more than left. 2. Atrial fibrillation and arteriosclerotic heart disease. 3. History of hypertension. 4. Diabetes mellitus type 2. 5. Probable COPD. Plan : 1. Resume Coumadin 5 mg daily. 2. Wean o2 to N/C 5 L. 3. Nebs qid , duoneb. 4. Continue Diuretic daily. 5. BMP ,CBC,Pro Time 6. Cont Antibiotics Brielle Villafana MD Jan 07, 2017 19:07
[2017-01-07] MEDS ORDERED: WARFARIN SOD 5 MG TAB PO SCH (19:15)
[2017-01-08] VITALS: PULSE 110
[2017-01-08 00:12] VITALS: BP 127/80; PULSE 110; RESP 25; TEMP 97.5; O2SAT 88
[2017-01-08] MEDS: METOPROLOL TARTRATE 50 MG TAB PO SCH (01:00)
[2017-01-08 01:05] VITALS: BP 109/75; PULSE 116; RESP 18; O2SAT 81
[2017-01-08] MEDS: ENOXAPARIN SODIUM 60 MG/0.6 ML SYRINGE SQ SCH (01:47)
[2017-01-08] MEDS: BUMETANIDE INJ 1 MG/4 ML VIAL IV PUSH SCH (01:48)
[2017-01-08 02:00] VITALS: BP 113/75; PULSE 110; PULSE 120; RESP 23; O2SAT 89
[2017-01-08] MEDS: ACETAMINOPHEN/HYDROcodone 325 MG/5 MG TAB PO PRN (02:52)
[2017-01-08] MEDS: diphenhydrAMINE HCL 50 MG CAP PO PRN (02:53)
[2017-01-08 03:00] VITALS: BP 115/65; PULSE 124; RESP 20; O2SAT 88
[2017-01-08 04:00] VITALS: BP 63/52; PULSE 100; RESP 20; O2SAT 89
[2017-01-08] MEDS ORDERED: LEVOFLOXACIN 250 MG TAB PO SCH (11:00)
--- NOTE | 2017-01-08 13:41 | RADRPT ---
EXAM DATE/TIME: 01/01/2017 00:00 [facility] COMPARISON: No previous studies available for comparison. INDICATIONS : Leg pain TECHNIQUE: Four-cuff ankle and brachial pressures were obtained. Pulse cuff waveform tracings of the ankles were recorded, and ankle-brachial indices were calculated. PRESSURES (mmHg): Brachial (arm): Right 138 Left 142 Ankle: Right >250 Left >250 PENNIE: Right CNO Left >CNO PULSED CUFF WAVEFORMS: Nondiagnostic examination secondary to density calcified vessels CONCLUSION: Nondiagnostic examination. CT angiography of the abdominal aorta and lower extremities is recommended for further evaluation if clinically indicated. Candelario Trivedi MD on January 08, 2017 at 13:25 Board Certified Radiologist. This report was verified electronically.
--- NOTE | 2017-02-06 22:02 | HHI.DS ---
Summary Note Date of : Jan 08, 2017 Time Of : 043 Admission Date Dec 29, 2016 at 16:46 Admitting Diagnosis congestive heart failure, hypoxia, elevated troponin, anasarca Diagnosis at Time of : (1) Acute on chronic systolic congestive heart failure ICD Code: I50.23 (2) History of CVA with residual deficit ICD Code: I69.30 (3) Atrial fibrillation ICD Code: I48.91 (4) Shingles outbreak ICD Code: B02.9 (5) Hypotension ICD Code: I95.9 (6) Insomnia ICD Code: G47.00 (7) Hypokalemia ICD Code: E87.6 Procedures thoracentesis B/L Brief History 76-year-old male with known history of hypertension, hyperlipidemia, history CVA with dysphasia, chronic systolic congestive heart failure, anticoagulated on Coumadin who presented to hospital because of abdominal pain. Patient does have difficulty speaking secondary previous CVA. Information was taken from medical records, patient came to emergency department for abdominal discomfort. Records indicate that for one week he has been having periumbilical, epigastric abdominal pain. Is also indicated that over the last 3 days he has been having slight increase with dyspnea with exertion and generalized weakness. Laboratory studies were done emergency department which did not indicate any acute abnormality for his above abdominal pain. Laboratory studies did indicate hyponatremia which is chronic and the patient, Coumadin coagulopathy. CT of the abdomen does indicate fluid within the right sided inguinal hernia, diffuse anasarca, bilateral partially loculated pleural effusions with bibasilar airspace disease. Chest x-ray was performed which did show congestive heart failure and worse when compared to previous examination. Patient was given Lasix in the emergency department and is recommended by the ER physician that the patient be admitted for further evaluation and management. Overnight, the patient apparently had episodes of desaturation. Product Distribution Specialist was notified. Follow-up laboratory studies were performed, additional Lasix was given, patient was started on BiPAP for respiratory support. Patient was seen today in he does not indicate any shortness of breath or dyspnea. Still experiencing abdominal discomfort. Patient has not had any significant urinary output with Lasix. Patient will be transferred to ICU for closer management. Per the , due to the patient's aphasia, he cannot express himself well. She noted that he seemed fatigued, and was urinating less frequently, and also did not want to get up and walk as normally. She thus brought him to the ER. Patient does indicate that he feels better today. Patient's feels his color has improved. Imaging Last Impressions Chest Ultrasound 01/07/17 1528 Signed Impressions: Service Date/Time: Saturday, January 07, 2017 11:30 - CONCLUSION: Small amount of fluid estimated at 83 cc. Juan Earl MD Chest X-Ray 01/06/17 0000 Signed Impressions: Service Date/Time: Friday, January 06, 2017 18:12 - CONCLUSION: Right-sided thoracentesis without pneumothorax. Juan Earl MD Abdomen/Pelvis CT 12/29/16 1329 Signed Impressions: Service Date/Time: Thursday, December 29, 2016 15:39 - CONCLUSION: 1. No umbilical hernia identified in patient with reported umbilical pain. There is fluid within a right-sided inguinal hernia. No bowel obstruction. Mild ileus. 2. Diffuse anasarca. Bilateral partially loculated pleural effusions with basilar airspace disease, right greater than left. Carson Honeycutt MD Hospital Course Patient with systolic and diastolic heart failure and with elevated pulmonary artery pressures. Patient continues with diuresis and continue conservative treatments with Bumex , fluid restriction, continue oxygenation HIs afib was better controlled. Cardiology consultation appreciated he had an acute outbreak of shingles in hisRight lower back, which responded to course of acyclovir x7d Patient did have a DNR on the chart, a hospice consult was obtained. The patient peacefully Yolanda Albert MD Feb 06, 2017 22:02
== END 2017-01-08 04:32 | disposition expired | DRG 291 ==
LOC: PHED 13:10 → PHEDA 16:46 → PH3B 18:11 → PHICU 12-30 07:30
PROVIDERS: ADMIT Hospitalist; ATTEND Hospitalist
PROC: 5A09357 Assistance with Respiratory Ventilation, Less than 24 Consecutive Hours, Continuous Positive Airway Pressure (ICD-10-PCS; principal; 2017-01-06)
PROC: 0W993ZZ Drainage of Right Pleural Cavity, Percutaneous Approach (ICD-10-PCS; 2017-01-06)
DX: I50.23 Acute on chronic systolic (congestive) heart failure (principal); J96.01 Acute respiratory failure with hypoxia; N17.9 Acute kidney failure, unspecified; I95.9 Hypotension, unspecified; E11.22 Type 2 diabetes mellitus with diabetic chronic kidney disease; E87.1 Hypo-osmolality and hyponatremia; I15.9 Secondary hypertension, unspecified; I48.91 Unspecified atrial fibrillation; E87.5 Hyperkalemia; B02.9 Zoster without complications; Z95.1 Presence of aortocoronary bypass graft; E78.5 Hyperlipidemia, unspecified; I25.10 Atherosclerotic heart disease of native coronary artery without angina pectoris; N18.9 Chronic kidney disease, unspecified; Z85.828 Personal history of other malignant neoplasm of skin; Z85.46 Personal history of malignant neoplasm of prostate; H91.93 Unspecified hearing loss, bilateral; Z79.84 Long term (current) use of oral hypoglycemic drugs; I25.2 Old myocardial infarction; K40.90 Unilateral inguinal hernia, without obstruction or gangrene, not specified as recurrent; Z87.891 Personal history of nicotine dependence; Z79.01 Long term (current) use of anticoagulants; I69.321 Dysphasia following cerebral infarction; R79.1 Abnormal coagulation profile; I73.9 Peripheral vascular disease, unspecified; R74.8 Abnormal levels of other serum enzymes; E87.6 Hypokalemia; J44.9 Chronic obstructive pulmonary disease, unspecified; G47.00 Insomnia, unspecified
CPT/HCPCS: 32554; 36600; 71010; 74177; 76604; 80048; 80053; 82150; 82550; 82805; 82945; 82948; 83615; 83690; 83735; 83986; 84157; 84443; 84484; 85007; 85025; 85027; 85610; 85730; 87015; 87070; 87102; 87116; 87205; 87206; 88112; 88305; 89051; 93005; 93306; 93922; 94002; 94003; 94150; 94640; 94664; 96374; J1650; J1815; J1940; P9047; Q0163; Q9963; Q9967